=== PATIENT | female | born 1985 | race Caucasian/White ===

== ENCOUNTER 2021-02-03 06:32 | Emergency (ER) | payer OTHER, SELFPAY ==
[2021-02-03 07:11] VITALS: BP 133/71; PULSE 93; RESP 12; TEMP 37.3; O2SAT 99; BMI 20.7
--- NOTE | 2021-02-03 08:22 | ED_ITS ---
HPI - Wound/Laceration General Chief Complaint: Wound/Laceration Stated Complaint: stitches removed Time Seen by Provider: 02/03/21 08:09 Source: patient Mode of arrival: ambulatory Limitations: no limitations History of Present Illness HPI narrative: 36-year-old female who presents emergency department for suture removal. The patient had a gluteal implant and liposuction done in the [place] approximately 21 days prior. She was told to get the stitches out by a local provider. The patient states that the wounds are healing well and she has no symptoms. Related Data Allergies Allergy/AdvReac Type Severity Reaction Status Date / Time JUVEDERM Allergy Intermediate LIP Uncoded 05/24/20 16:46 SWELLING Review of Systems Review of Systems: Yes all other systems are reviewed and are negative PMFSH [facility] N[facility]: Past medical history: None. Past surgical history: Gluteal implant and liposuction approximately 21 days prior. Social history: She denies tobacco, alcohol and drug use. Medical History (Updated 02/03/21 @ 08:46 by Kenneth Grubbs MD) No known health problems Social History Social History Advance Directives: No Advance Directives Information Provided: No Patient : No Physical Exam Vital Signs: Vital Signs: Last Vital Signs Temp 99.1 F 02/03/21 07:11 Pulse 93 02/03/21 07:11 Resp 12 02/03/21 07:11 BP 133/71 02/03/21 07:11 Pulse Ox 99 02/03/21 07:11 Body Mass Index 20.7 Const: General: cooperative and healthy appearing Nutritional Appearance: well nourished Orientation/consciousness: oriented to person Limitations: no limitations Skin: Other: The patient has a mid gluteal incision with a running suture with 1 not. Am unable to locate the suture in the patient's umbilical area. Both surgical sites appear to be healing well. Neuro: General: oriented to person Course Course Course Narrative: 36-year-old female who presents emergency department for evaluation of suture removal from a gluteal implant procedure and liposuction procedure done 21 days prior in the [place]. The patient appears to have 1 running suture in the gluteal area however uncertain how to remove the suture. I am not able to visualize the suture in the patient's umbilical area. There does not appear to be any evidence of infection. I will consult our on- call surgeon to see if they can see the patient is now patient to remove these sutures. 0840: Dr. Hall, the on-call surgeon came to the emergency department evaluated the patient. He was not able to find the bottom knot of the running suture in the gluteal area but was able to remove the majority of the suture with gentle traction. He was not able to see a removable suture in the patient's umbilical area. I did discuss this with the patient. The patient will be discharged home. She was instructed to follow up with Dr. Pavon if she develops any issues or if she has she develops any signs of infection Discharge Plan Discharge Clinical Impression: Encounter for removal of sutures Patient Disposition: Home, Self-Care Additional Instructions: The suture in the gluteal area was imbedded and there was only at top knot and no bottom knot that was visualized. The on-call surgeon, was able to remove the majority of the suture but there may be some retained suture. This retained suture will work itself out over time. We were not able to see any suture that needed to be removed in the belly button area. If you develop any signs of infection such as redness, increased pain, increased swelling, drainage of pus then you should call Dr. Zuniga's office for follow- up or return to the emergency department. Referrals: Rico Mackenzie MD [Physician] - 1 week (Thanks for you help with this patient)
--- NOTE | 2021-02-03 08:52 | PM.CNGS ---
History of Present Illness Consult details Consult date: 02/03/21 Requesting physician: Kenneth Grubbs Narrative: 36-year-old female patient status post cosmetic surgery performed at the [facility] presenting to the emergency department for postoperative suture removal. Wounds were evaluated by the emergency room physician and patient found to have a suture located in the intergluteal cleft with only 1 not visible. Surgical consultation requested for assistance with suture removal. The patient feels fine and denies any ongoing pain or discharge from her wounds. She also umbilical incision which her [facility] surgeon requested a suture removal as well. Incisions in the lower abdomen from the liposuction were previously removed and Review of Systems Review of Systems: Yes all other systems are reviewed and are negative Gastrointestinal: Gastrointestinal: Denies abdominal pain Musculoskeletal: Musculoskeletal: Denies back pain and Denies myalgias Integumentary/Breasts: Skin/Breast: Denies bleeding lesions, Denies new lesions, Denies skin swelling, Denies skin ulcer and Denies sores PMFSH Past Medical History Medical History No known health problems Social History Social History Advance Directives: No Advance Directives Information Provided: No Patient : No Meds Allergies Allergy/AdvReac Type Severity Reaction Status Date / Time JUVEDERM Allergy Intermediate LIP Uncoded 05/24/20 16:46 SWELLING Physical Exam Vital Signs: Vital Signs: Last Vital Signs Temp 99.1 F 02/03/21 07:11 Pulse 93 02/03/21 07:11 Resp 12 02/03/21 07:11 BP 133/71 02/03/21 07:11 Pulse Ox 99 02/03/21 07:11 Body Mass Index 20.7 Const: General: cooperative, comfortable, no acute distress, alert and awake Resp: Effort & Inspection: normal respiratory effort GI: Other: Umbilical into bilateral lower quadrant incisions are found to be clean and intact. No suture is seen in any of the 3 incisions. No suture removal was performed in the abdomen. Back/Spine/Pelvis: Back/spine/pelvis image: 1. Incision and intergluteal cleft: Wounds are clean and intact 2. Visible suture knot in the upper incision, no lower not identified; suture was able to be advanced with a slight pull on the knot, and visible not excised. No other residual suture could be identified. Skin: Other: Warm, dry, no rash Extrem: General: Yes normal to inspection Results Labs Labs: All other labs normal. Assessment and Plan (1) Encounter for removal of sutures: Status: Acute Patient underwent surgery in the [facility] returns to the emergency department for suture removal. The surgeon left no instructions as to the type of suture material and its location. No instructions were given as to how the suture was to be removed. Examination of the umbilicus reveals no visible suture material. The suture knot which was exposed in the intergluteal cleft was removed; no other not could be identified in the opposite end. Patient should follow up in our office as needed should she developed problems with the incisions. Procedures Date of Service Date of Service: 02/03/21
--- NOTE | 2021-02-03 09:29 | PC.NURSE ---
LATE ENTRY. PT WAS SEEN BY WEIGHTS AND MEASURES INSPECTOR SURGEON FOR SUTURE REMOVAL AFTER GLUTEAL IMPLANTS PLACED 21 DAYS AGO
== END 2021-02-03 08:58 | disposition home or self-care (01) ==
PROVIDERS: Emergency Provider Emergency Medicine Emergency Medical Services; PCP Internal Medicine
DX: Z48.02 Encounter for removal of sutures (principal)
CPT/HCPCS: 99282; 99283

== ENCOUNTER 2022-12-04 12:22 | Emergency (ER) | payer OTHER, SELFPAY ==
--- NOTE | ~2022-12-04 | XR_ITS ---
EXAMINATION: XR CHEST CLINICAL INFORMATION: Cough. COMPARISON: 08/15/2019 chest radiographs. TECHNIQUE: Frontal view of the chest was obtained. FINDINGS: No significant abnormality is noted involving the heart, lungs, mediastinum, bony thorax or soft tissues. XR/XR chest 1V IMPRESSION: No acute cardiopulmonary process.
[2022-12-04 12:24] VITALS: BP 160/68; PULSE 107; RESP 20; TEMP 38.2; O2SAT 100; BMI 21.7
--- NOTE | 2022-12-04 12:25 | ED.GENADULT ---
HPI - General Adult General Chief complaint: Dyspnea Stated complaint: Cough Diff Breathing Time Seen by Provider: 12/04/22 14:28 Related Data Previous Rx's ?Medication ?Instructions ?Recorded albuterol sulfate 2.5 mg/0.5 mL 5 mg inhalation Q6H PRN shortness 12/04/22 solution for nebulization of breath or wheezing #30 ea albuterol sulfate 90 mcg/actuation 1 inh inhalation QID PRN shortness 12/04/22 aerosol inhaler of breath or wheezing #8.5 grams doxycycline hyclate 100 mg tablet 100 mg PO BID 7 days #14 tabs 12/04/22 prednisone 20 mg tablet 20 mg PO DAILY 7 days #7 tabs 12/04/22 ondansetron 4 mg disintegrating 4 mg PO Q6-8H PRN nausea and 05/30/23 tablet vomiting #7 tabs pantoprazole 40 mg tablet,delayed 40 mg PO DAILY #30 tabs 05/30/23 release (Protonix) Allergies Allergy/AdvReac Type Severity Reaction Status Date / Time JUVEDERM Allergy Intermediate LIP Uncoded 05/30/23 19:24 SWELLING PMFSH Past Medical History Medical History No known health problems Social History Social History Alcohol intake: current Alcohol intake frequency: holidays/special occasions only Smoked in Last 30 Days: No Use of substances other than those prescribed or required for medical reasons: No Advance Directives: No Advance Directives Information Provided: No Patient : No Physical Exam ED Vital Signs: BMI result Body Mass Index 21.7 Course Course Course Narrative: This is an RME: Additional HPI, ROS, PE not included below will be deferred to primary provider. 37-year-old female history of arthritis and asthma presenting with a dry cough x3 weeks and shortness of breath x2 days worsening. Patient tells me cough is dry in nature, and very uncomfortable. Reports she has been having shortness of breath at rest and with exertion as well as substernal chest pain only with cough. If she is not coughing she does not experience chest pain. Denies any sick contacts. Denies fevers, chills, nausea, vomiting, abdominal pain, headache, vision changes, dizziness weakness. No known sick contacts. Multiple negative COVID test at home. Has been using her nebulizer with little to no relief, does not have an inhaler. Physical exam patient with dry cough intermittently, diminished breath sounds bilaterally, rapid regular rhythm likely sinus tachycardia. Saturating 99% on room air 113 beats per minute and patient febrile. Tachycardia and fever likely secondary to viral illness. No need for blood cultures or lactic as I do not suspect sepsis. Plan viral testing, x-ray. Will order albuterol treatment. Medications Administered Discontinued Medications Generic Name Dose Route Start Last Admin Trade Name Freq PRN Reason Stop Dose Admin Acetaminophen 650 mg 12/04/22 12:25 12/04/22 12:33 Acetaminophen 325 Mg Tablet PO 12/04/22 12:26 650 mg ONCE ONE Administration Albuterol Sulfate 5 mg 12/04/22 12:25 12/04/22 13:13 Albuterol Sulfate (0.083%) 2.5 Mg/3 Ml Vial.Neb INHALE 12/04/22 12:26 5 mg ONCE ONE Administration Dexamethasone Sodium Phosphate 8 mg 12/04/22 12:30 12/04/22 14:58 Dexamethasone Sod Phosphate 4 Mg/Ml Vial IVPUSH 12/04/22 12:31 8 mg ONCE ONE Administration Medical Decision Making Lab Data Labs: Lab Results 12/04/22 Range/Units 13:13 Influenza Type A (PCR) NEGATIVE (Negative) Influenza Type B (PCR) NEGATIVE (Negative) RSV RNA Qual (PCR) NEGATIVE (Negative) SARS-CoV-2 RNA (RT-PCR) NEGATIVE (Negative) Discharge Plan Discharge Clinical Impression: Asthma with exacerbation Patient Disposition: Home, Self-Care Instructions: Asthma (DC) Additional Instructions: Follow up with your primary care provider. Return to the emergency department immediately if your symptoms worsen or if you develop any dizziness, shortness of breath, difficulty breathing, chest pain, blurry vision, loss of vision, nausea, vomiting, abdominal pain, fever, chills, back pain, or any other complaints. Prescriptions: New prednisone 20 mg tablet 20 mg PO DAILY 7 Days Qty: 7 0RF doxycycline hyclate 100 mg tablet 100 mg PO BID 7 Days Qty: 14 0RF albuterol sulfate 90 mcg/actuation HFA aerosol inhaler 1 inh inhalation QID PRN (Reason: shortness of breath or wheezing) Qty: 8.5 0RF albuterol sulfate 2.5 mg/0.5 mL solution for nebulization 5 mg inhalation Q6H PRN (Reason: shortness of breath or wheezing) Qty: 30 0RF No Action pantoprazole [Protonix] 40 mg tablet,delayed release (DR/EC) 40 mg PO DAILY Qty: 30 0RF ondansetron 4 mg tablet,disintegrating 4 mg PO Q6-8H PRN (Reason: nausea and vomiting) Qty: 7 0RF Referrals: [facility] [place] Family Medicine [Provider Group] (Call to establish and follow up with a primary care provider. If you already have a primary care provider, please follow up with them.) [facility] [place] [facility] [Provider Group] (Call to establish and follow up with a primary care provider. If you already have a primary care provider, please follow up with them.) [facility] [facility] [Provider Group] (Call to establish and follow up with a primary care provider. If you already have a primary care provider, please follow up with them.) Interventions: ED Discharge Assessment Last Done: 12/04/22 15:00 Discharge Date/Time: 12/04/22 15:00 Print Language: Kinyarwanda
[2022-12-04] MEDS: Acetaminophen 325 MG TABLET 650 MG PO (12:33)
[2022-12-04] MEDS: Albuterol Sulfate (0.083%) 2.5 MG/3 ML VIAL.NEB 5 MG INHALE (13:13)
[2022-12-04 13:14] VITALS: PULSE 107; RESP 18; O2SAT 97
[2022-12-04 13:55] LABS: Influenza A PCR NEGATIVE (Negative); Influenza B PCR NEGATIVE (Negative); Resp Syncy Virus RNA Qual PCR NEGATIVE (Negative); SARS COV2 PCR INHOUSE NEGATIVE (Negative)
[2022-12-04 14:21] VITALS: BP 111/63; PULSE 90; RESP 18; TEMP 36.8; O2SAT 100
--- NOTE | 2022-12-04 14:26 | PC.NURSE ---
Pt a&ox4, lying semi-fowlers in bed, airway open and patent, no obvious signs of distress. Pt reports that her pain has improved to a 3 since she got the breathing tx. Pt reports that pain is in lower abdomen since she has been coughing so much and reports that she has two lumps in her lower abdomen now that is painful upon palpation.
--- NOTE | 2022-12-04 14:29 | ED.GENADULT ---
HPI - General Adult General Chief complaint: Dyspnea Stated complaint: Cough Diff Breathing Time Seen by Provider: 12/04/22 14:28 Source: patient Mode of arrival: ambulatory Limitations: no limitations History of Present Illness HPI narrative: Patient is a 37 year old assigned female at with a history of asthma presenting to the emergency department today with a cough. Patient states that she has had a cough for the last 3 weeks that doesn't seem to be getting better and does not have any asthma medications at home. Patient denies any dizziness, lightheadedness, abdominal pain, nausea, vomiting, fever, chills, blurry vision, double vision, loss of vision, chest pain, difficulty breathing, shortness of breath, back pain, night sweats, pain with urination, increased urinary frequency, increased urinary urgency, blood in her urine or stool, syncope or a near syncopal episode, recent trauma or falls, bowel incontinence, bladder incontinence, bowel retention, bladder retention, or any other complaints at this time. Onset (ago): week(s) (3) Severity: mild Severity scale (1-10): 3 Relieving factors: none Exacerbating factors: none Associated symptoms: cough Treatments prior to arrival: none Related Data Previous Rx's Medication Instructions Recorded albuterol sulfate 2.5 mg/0.5 mL 5 mg inhalation Q6H PRN shortness 12/04/22 solution for nebulization of breath or wheezing #30 ea albuterol sulfate 90 mcg/actuation 1 inh inhalation QID PRN shortness 12/04/22 aerosol inhaler of breath or wheezing #8.5 grams doxycycline hyclate 100 mg tablet 100 mg PO BID 7 days #14 tabs 12/04/22 prednisone 20 mg tablet 20 mg PO DAILY 7 days #7 tabs 12/04/22 Allergies Allergy/AdvReac Type Severity Reaction Status Date / Time JUVEDERM Allergy Intermediate LIP Uncoded 05/24/20 16:46 SWELLING Review of Systems Constitutional: Constitutional: Reports no additional constitutional complaints, Denies chills, Denies fever(s) and Denies night sweats Eyes: Eyes: Reports no additional eye complaints, Denies blurry vision, Denies change in vision, Denies diplopia, Denies eye discharge, Denies loss of vision and Denies eye pain ENT: Denies dizziness Cardiovascular: Cardiovascular: Reports no additional cardiovascular complaints, Denies chest pain, Denies lightheadedness, Denies Loss of Consciousness and Denies dyspnea Respiratory: Respiratory: Reports no additional respiratory complaints, Reports cough and Denies dyspnea Gastrointestinal: Gastrointestinal: Reports no additional gastrointestinal complaints, Denies abdominal pain, Denies melena, Denies hematochezia, Denies change in bowel habits and Denies change in stool character Genitourinary: Genitourinary: Denies hematuria, Denies urinary frequency, Denies dysuria, Denies urinary incontinence, Denies urinary hesitancy and Denies urinary urgency Musculoskeletal: Musculoskeletal: Reports no additional musculoskeletal complaints, Denies numbness and Denies tingling Neurologic: Denies dizziness, Denies loss of vision, Denies numbness and Denies tingling Psychiatric: Psychiatric: Reports no additional psychiatric complaints Endocrine: Endocrine: Reports no additional endocrine complaints Hematologic/Lymphatic: Hematologic/Lymphatic: Reports no additional hematologic/lymphatic complaints Allergic/Immunologic: Allergic/Immunologic: Reports no additional allergic/immunologic complaints PMFSH Past Medical History Attestation statement: The following information was validated with the patient. Source: old records reviewed and nursing notes reviewed Medical History No known health problems Social History Social History Alcohol intake: current Alcohol intake frequency: holidays/special occasions only Smoked in Last 30 Days: No Use of substances other than those prescribed or required for medical reasons: No Advance Directives: No Patient : No Physical Exam ED Vital Signs: Vital Signs - 24 hr 12/04/22 12:24 12/04/22 13:14 12/04/22 14:21 Temperature 100.8 F H 98.3 F Pulse Rate 107 H 107 H 90 Respiratory Rate 20 18 18 Blood Pressure 160/68 H 111/63 Pulse Oximetry 100 100 Oxygen Delivery Method Room Air Room Air BMI result Body Mass Index 21.7 Const General: cooperative, no acute distress, alert and awake Nutritional Appearance: well nourished Orientation/consciousness: patient oriented x3 Limitations: no limitations HENMT Head: Yes normal to inspection and Yes atraumatic Ears: hearing grossly normal bilaterally and external ears normal General nose exam: Normal external nose present, no nasal discharge noted and no epistaxis Face and sinus: Yes normal facial exam, No abrasion and No laceration Mouth: Normal oral and palatal mucosa present, no drooling and no muffled voice Eyes General: appearance normal, both eyes and all related structures Periorbital: periorbital findings normal Eyelids: Yes eyelids normal Conjunctivae: conjunctivae normal Pupils: Equal, round and reactive pupils present EOM: EOMs intact bilaterally Neck Neck: Yes normal visual inspection, Yes full ROM and Yes no lymphadenopathy Chest Chest palpation & inspection: normal inspection of the chest Resp Effort & Inspection: normal respiratory effort and able to speak in complete sentences Auscultation: wheezes throughout Cardio Rate: regular rate Rhythm: regular rhythm GI Inspection: Yes normal to inspection Palpation (GI): Soft to palpation, not firm, nontender and no guarding Neuro General: patient oriented x3 and moves all extremities Cranial nerves: Yes Equal, round and reactive pupils present Cognition (Neuro): normal cognition Motor exam (neuro): 5/5 motor strength present throughout Sensory Exam: Normal double simultaneous stimulation for sensation Coordination: [id number] test normal Extrem General: Yes normal to inspection, Yes full ROM and Yes capillary refill normal Psych Appearance: grossly normal Mental Status: mental status grossly normal Affect: normal affect Attitude: cooperative Thought process: Normal thought process present Thought content: Normal thought content present Insight: Good insight present (Psych) Medications Administered Discontinued Medications Generic Name Dose Route Start Last Admin Trade Name [place] PRN Reason Stop Dose Admin Acetaminophen 650 mg 12/04/22 12:25 12/04/22 12:33 Acetaminophen 325 Mg Tablet PO 12/04/22 12:26 650 mg ONCE ONE Administration Albuterol Sulfate 5 mg 12/04/22 12:25 12/04/22 13:13 Albuterol Sulfate (0.083%) 2.5 Mg/3 Ml Vial.Neb INHALE 12/04/22 12:26 5 mg ONCE ONE Administration Dexamethasone Sodium Phosphate 8 mg 12/04/22 12:30 12/04/22 14:58 Dexamethasone Sod Phosphate 4 Mg/Ml Vial IVPUSH 12/04/22 12:31 8 mg ONCE ONE Administration Medical Decision Making Medical Decision Making [facility] Narrative: Patient is a 37 year old assigned female at with a history of asthma presenting to the emergency department today with a cough. Patient's physical exam showed diffuse wheezing. Patient's Influenza/COVID/RSV swab was negative. Patient's chest x-ray showed no acute process. I explained my physical exam findings as well as all test results to the patient. I answered all questions asked by the patient. I stressed the importance of the patient taking her medication as prescribed. I stressed the importance of the patient following up with her primary care provider. I stressed the importance of the patient returning to the emergency department immediately if her symptoms were to worsen or if she were to develop any dizziness, shortness of breath, difficulty breathing, chest pain, blurry vision, loss of vision, nausea, vomiting, abdominal pain, fever, chills, back pain, or any other complaints. Patient verbalized agreement and understanding with this treatment plan and discharge. Differential Diagnosis Differential Diagnoses: The differential diagnosis associated with the presentation includes asthma exacerbation Lab Data MDM Lab Attestation statement: I reviewed the patient's lab results. Labs: Lab Results 12/04/22 Range/Units 13:13 Influenza Type A (PCR) NEGATIVE (Negative) Influenza Type B (PCR) NEGATIVE (Negative) RSV RNA Qual (PCR) NEGATIVE (Negative) SARS-CoV-2 RNA (RT-PCR) NEGATIVE (Negative) Independent Interpretation I performed an independent interpretation of an: Plain X-Ray Interpretation: My interpretation is in agreement with the radiologist's impression of this imaging study. EXAMINATION: XR CHEST CLINICAL INFORMATION: Cough. COMPARISON: 08/15/2019 chest radiographs. TECHNIQUE: Frontal view of the chest was obtained. FINDINGS: No significant abnormality is noted involving the heart, lungs, mediastinum, bony thorax or soft tissues. XR/XR chest 1V IMPRESSION: No acute cardiopulmonary process. Dictated By: Sami Mcmullen MD Signed By: Electronically signed by Sami Mcmullen MD 12/04/22 1400 Discharge Plan Discharge Clinical Impression: Asthma with exacerbation Patient Disposition: Home, Self-Care Instructions: Asthma (DC) Additional Instructions: Follow up with your primary care provider. Return to the emergency department immediately if your symptoms worsen or if you develop any dizziness, shortness of breath, difficulty breathing, chest pain, blurry vision, loss of vision, nausea, vomiting, abdominal pain, fever, chills, back pain, or any other complaints. Prescriptions: New prednisone 20 mg tablet 20 mg PO DAILY 7 Days Qty: 7 0RF doxycycline hyclate 100 mg tablet 100 mg PO BID 7 Days Qty: 14 0RF albuterol sulfate 90 mcg/actuation HFA aerosol inhaler 1 inh inhalation QID PRN (Reason: shortness of breath or wheezing) Qty: 8.5 0RF albuterol sulfate 2.5 mg/0.5 mL solution for nebulization 5 mg inhalation Q6H PRN (Reason: shortness of breath or wheezing) Qty: 30 0RF Referrals: [facility] [place] [facility] [Provider Group] (Call to establish and follow up with a primary care provider. If you already have a primary care provider, please follow up with them.) [facility] [Provider Group] (Call to establish and follow up with a primary care provider. If you already have a primary care provider, please follow up with them.) [facility] [Provider Group] (Call to establish and follow up with a primary care provider. If you already have a primary care provider, please follow up with them.) Interventions: ED Discharge Assessment Last Done: 12/04/22 15:00 Discharge Date/Time: 12/04/22 15:00 Print Language: Divehi
[2022-12-04] MEDS: dexAMETHasone sod phosphate 4 MG/ML VIAL 8 MG IVPUSH (14:58)
== END 2022-12-04 15:00 | disposition home or self-care (01) ==
PROVIDERS: Physician Assistant; Emergency Provider Emergency Medicine
DX: J45.901 Unspecified asthma with (acute) exacerbation (principal); R06.02 Shortness of breath; R05.9 Cough, unspecified; Z20.822 Contact with and (suspected) exposure to COVID-19; Z20.828 Contact with and (suspected) exposure to other viral communicable diseases; Z79.899 Other long term (current) drug therapy
CPT/HCPCS: 0241U; 71045; 94640; 99284; 99285; J1100

== ENCOUNTER 2023-05-30 19:12 | Emergency (ER) | payer OTHER, SELFPAY ==
--- NOTE | ~2023-05-30 | US_ITS ---
EXAMINATION: US ABDOMEN LIMITED CLINICAL INFORMATION: Right upper quadrant pain. COMPARISON: None available. TECHNIQUE: Real-time imaging of the right upper quadrant abdominal viscera. FINDINGS: PANCREAS: Normal. LIVER: Normal. The liver is normal in size. The liver contour is normal. Parenchymal echogenicity is normal. No focal hepatic lesion. There is no intrahepatic biliary duct dilatation seen. GALLBLADDER: There is mild pericholecystic fluid. The gallbladder is physiologically distended without evidence of stones, sludge, polyps or wall thickening. COMMON BILE DUCT: Normal in caliber measuring 0.2 cm in diameter. RIGHT KIDNEY: Normal. No hydronephrosis. No renal calculi or focal parenchymal lesions. The kidney measures 10.9 cm in maximum dimension. FREE FLUID: None. US/US abdomen limited IMPRESSION: There is mild pericholecystic fluid. There is, however, no cholelithiasis, and no gallbladder wall thickening is seen to suggest acute cholecystitis. The examination is otherwise unremarkable.
[2023-05-30 19:24] VITALS: BP 134/89; PULSE 59; RESP 18; TEMP 36.6; O2SAT 99; BMI 21.7
--- NOTE | 2023-05-30 20:23 | ED.ABDPAIN ---
HPI - Abdominal Pain General Chief Complaint: Abdominal Pain Stated Complaint: Stomach/abdominal pain, chest pain Time Seen by Provider: 05/30/23 22:05 Source: patient Mode of arrival: ambulatory Limitations: no limitations History of Present Illness HPI narrative: Patient history of arthritis did not take any Tylenol comes with upper abdominal pain with nausea and bloating since yesterday no vomiting no history of same in the past no fever no chills no urinary complaint Related Data Previous Rx's Medication Instructions Recorded albuterol sulfate 2.5 mg/0.5 mL 5 mg inhalation Q6H PRN shortness 12/04/22 solution for nebulization of breath or wheezing #30 ea albuterol sulfate 90 mcg/actuation 1 inh inhalation QID PRN shortness 12/04/22 aerosol inhaler of breath or wheezing #8.5 grams doxycycline hyclate 100 mg tablet 100 mg PO BID 7 days #14 tabs 12/04/22 prednisone 20 mg tablet 20 mg PO DAILY 7 days #7 tabs 12/04/22 ondansetron 4 mg disintegrating 4 mg PO Q6-8H PRN nausea and 05/30/23 tablet vomiting #7 tabs pantoprazole 40 mg tablet,delayed 40 mg PO DAILY #30 tabs 05/30/23 release (Protonix) Allergies Allergy/AdvReac Type Severity Reaction Status Date / Time JUVEDERM Allergy Intermediate LIP Uncoded 05/30/23 19:24 SWELLING Review of Systems Review of Systems Yes all other systems are reviewed and are negative [facility] Past Medical History Medical History No known health problems Social History Social History Alcohol intake: current Alcohol intake frequency: holidays/special occasions only Smoked in Last 30 Days: No Use of substances other than those prescribed or required for medical reasons: No Advance Directives: No Advance Directives Information Provided: No Patient : No Physical Exam ED Vital Signs: Vital Signs - 24 hr 05/30/23 19:24 05/30/23 20:56 Temperature 97.8 F Pulse Rate 59 62 Respiratory Rate 18 18 Blood Pressure 134/89 126/67 Pulse Oximetry 99 100 Oxygen Delivery Method Room Air Room Air BMI result Body Mass Index 21.7 Appearance: Alert. Oriented X3. No acute distress. Eyes: PERRLA, No Nystagmus ENT: Pharynx normal. Oral Mucosa moist Neck: Normal inspection. Neck supple. CVS: Normal heart rate and rhythm. Pulses normal. Respiratory: No respiratory distress. Equal air entry bilateral, no wheezing/rales/rhonchi Abdomen: Soft mild epigastric area no rebound tenderness or guarding Roche sign neg. Bowel sounds are present, no mass palpable, no CVA tenderness Skin: Skin warm and dry. Normal skin color. Normal skin turgor. Extremities: No lower extremity edema. No calf tenderness Neuro: Oriented X 3. No motor deficit. Course Course Course Narrative: This is an RME: Additional HPI, ROS, PE not included below will be deferred to primary provider. This is a [id number] presenting to the ER with complaints of epigastric pain, burning and belching x 1 days. Has taken gas-x without any relief. TTP in the epigastrium. Plan: labs, US Medical Decision Making Medical Decision Making [facility] Narrative: Patient's ultrasound negative for gallstones has elevated LFT with normal bilirubin and 20 note the patient does drink occasionally but not heavy drinker does not take any Tylenol low risk for hepatitis. Will discharge patient home advised to follow with gastroenterology Differential Diagnosis Differential Diagnoses: The differential diagnosis associated with the presentation includes Gastritis/cholecystitis/cholelithiasis/pancreatitis Lab Data [facility] Lab Attestation statement: I reviewed the patient's lab results. 05/30/23 20:36 05/30/23 20:36 Labs: Lab Results 05/30/23 Range/Units 20:36 WBC 12.4 H (4.8-10.8) X10*3/uL RBC 4.09 L (4.20-5.50) X10*6/uL Hgb 11.9 L (12.0-16.0) g/dl Hct 35.8 L (37.0-47.0) % MCV 87.5 (80.0-98.0) fL MCH 29.1 (27.0-33.0) pg MCHC 33.2 (31.0-35.0) g/dl RDW 13.3 (11.0-16.0) % Plt Count 216 (160-400) X10*3/uL MPV 12.1 (9.4-12.3) fL Immature Gran % (Auto) 0.2 (0.0-0.4) % Neut % (Auto) 72.1 (45-73) % Lymph % (Auto) 18.5 L (20-40) % Cuming % (Auto) 8.4 (2-11) % Eos % (Auto) 0.5 (0-4) % Baso % (Auto) 0.3 (0-2) % Lymph # (Auto) 2.3 (1.2-4.9) X10*3/uL Cuming # (Auto) 1.0 (0.1-1.2) X10*3/uL Eos # (Auto) 0.1 (0.0-0.4) X10*3/uL Baso # (Auto) 0.0 (0.0-0.2) X10*3/uL Abs Immat Gran (auto) 0.02 (0.00-0.03) X10*3/uL Absolute Neuts (auto) 9.0 H (2.0-8.3) x10*3/uL Absolute Nucleated RBC 0.000 (0.0-0.012) X10*3/uL Nucleated RBC % (auto) 0.0 (0.0-0.2) /100WBC Sodium 138 (135-145) mmol/L Potassium 3.8 (3.3-5.1) mmol/L Chloride 105 (96-108) mmol/L Carbon Dioxide 20 L (22-29) mmol/L Anion Gap 17 (12-20) BUN 8 L (9-16) mg/dL Creatinine 0.67 (0.5-1.4) mg/dL Estim Creat Clear Calc 84.2 Estimated GFR > 60 Random Glucose 112 (60-115) mg/dL Calcium 10.3 H (8.4-10.2) mg/dL Total Bilirubin 0.8 (0.0-1.0) mg/dL Direct Bilirubin 0.4 (0.0-0.5) mg/dL AST 348 H (5-31) U/L ALT 204 H (0-31) U/L Alkaline Phosphatase 65 (39-117) U/L Troponin I High Sens < 2.7 (<3.5-17.0) ng/L Total Protein 7.8 (6.5-8.0) g/dL Albumin 4.4 (3.5-5.0) g/dL Lipase 24 (8-78) U/L Radiology Impression Discussion of test interpretation with radiology: I have reviewed the radiologist's reading. Medications Administered Discontinued Medications Generic Name Dose Route Start Last Admin Trade Name Freq PRN Reason Stop Dose Admin Omeprazole 40 mg 05/30/23 22:31 05/30/23 22:35 Omeprazole 40 Mg Capsule.Dr PO 05/30/23 22:32 40 mg ONCE ONE Administration Ondansetron HCl 4 mg 05/30/23 22:23 05/30/23 22:35 Ondansetron Odt 4 Mg Tab.Rapdis TRANSLINGU 05/30/23 22:24 4 mg ONCE ONE Administration Tramadol HCl 50 mg 05/30/23 22:23 05/30/23 22:35 Tramadol Hcl 50 Mg Tablet PO 05/30/23 22:24 50 mg ONCE ONE Administration Discharge Plan Discharge Clinical Impression: Gastritis, Elevated LFTs Patient Disposition: Home, Self-Care Instructions: Gastritis (ED) Additional Instructions: You have elevated liver enzymes cause not known Do not take Tylenol/alcohol Follow-up with upper marker for further evaluation Recheck her liver enzymes next week Take Protonix daily for gastritis and Zofran for nausea as needed Prescriptions: New pantoprazole [Protonix] 40 mg tablet,delayed release (DR/EC) 40 mg PO DAILY Qty: 30 0RF ondansetron 4 mg tablet,disintegrating 4 mg PO Q6-8H PRN (Reason: nausea and vomiting) Qty: 7 0RF No Action prednisone 20 mg tablet 20 mg PO DAILY 7 Days Qty: 7 0RF doxycycline hyclate 100 mg tablet 100 mg PO BID 7 Days Qty: 14 0RF albuterol sulfate 90 mcg/actuation HFA aerosol inhaler 1 inh inhalation QID PRN (Reason: shortness of breath or wheezing) Qty: 8.5 0RF albuterol sulfate 2.5 mg/0.5 mL solution for nebulization 5 mg inhalation Q6H PRN (Reason: shortness of breath or wheezing) Qty: 30 0RF Referrals: Anna Martinez MD [Physician] - 1 week Interventions: ED Discharge Assessment Last Done: 05/30/23 22:47 Discharge Date/Time: 05/30/23 22:47
[2023-05-30 20:43] LABS: Basophils Percent Auto 0.3 % (0-2); Eosinophils Absolute Auto 0.1 X10*3/uL (0.0-0.4); Eosinophils Percent Auto 0.5 % (0-4); Hematocrit 35.8 % (37.0-47.0); Hemoglobin 11.9 g/dl (12.0-16.0); Imm Gran Abs Auto 0.02 X10*3/uL (0.00-0.03); Imm Gran Pct Auto 0.2 % (0.0-0.4); Lymphocytes Absolute Auto 2.3 X10*3/uL (1.2-4.9); Lymphocytes Percent Auto 18.5 % (20-40); MANUAL DIFF FLAG NO; Mean Corpuscular HGB Conc 33.2 g/dl (31.0-35.0); Mean Corpuscular Hemoglobin 29.1 pg (27.0-33.0); Mean Corpuscular Volume 87.5 fL (80.0-98.0); Mean Platelet Volume 12.1 fL (9.4-12.3); Monocytes Percent Auto 8.4 % (2-11); Neutrophils Percent Auto 72.1 % (45-73); Platelet Count 216 X10*3/uL (160-400); Red Blood Count 4.09 X10*6/uL (4.20-5.50); Red Cell Distribution Width 13.3 % (11.0-16.0); White Blood Count 12.4 X10*3/uL (4.8-10.8)
[2023-05-30 20:56] VITALS: BP 126/67; PULSE 62; RESP 18; O2SAT 100
[2023-05-30 21:02] LABS: Alanine Aminotransferase 204 U/L (0-31); Albumin Level 4.4 g/dL (3.5-5.0); Alkaline Phosphatase 65 U/L (39-117); Anion Gap 17 (12-20); Aspartate Amino Transferase 348 U/L (5-31); Bilirubin Direct 0.4 mg/dL (0.0-0.5); Bilirubin Total 0.8 mg/dL (0.0-1.0); Blood Urea Nitrogen 8 mg/dL (9-16); Calcium 10.3 mg/dL (8.4-10.2); Carbon Dioxide 20 mmol/L (22-29); Chloride 105 mmol/L (96-108); Creatinine Clr Calc Pharmacy 84.2; Estimated Glomerular Filt Rate > 60; Glucose Random 112 mg/dL (60-115); Lipase 24 U/L (8-78); Potassium 3.8 mmol/L (3.3-5.1); Sodium 138 mmol/L (135-145); Total Protein 7.8 g/dL (6.5-8.0)
[2023-05-30 21:07] LABS: Troponin-I High Sensitivity < 2.7 ng/L (<3.5-17.0)
[2023-05-30] MEDS: Omeprazole 40 MG CAPSULE.DR PO (22:35)
[2023-05-30] MEDS: Ondansetron ODT 4 MG TAB.RAPDIS TRANSLINGU (22:35)
[2023-05-30] MEDS: traMADoL HCL 50 MG TABLET PO (22:35)
== END 2023-05-30 22:47 | disposition home or self-care (01) ==
PROVIDERS: Physician Assistant Medical; Emergency Provider Internal Medicine; PCP Internal Medicine
DX: K29.70 Gastritis, unspecified, without bleeding (principal); R79.89 Other specified abnormal findings of blood chemistry; R10.13 Epigastric pain; Z79.899 Other long term (current) drug therapy
CPT/HCPCS: 36415; 76705; 80048; 80076; 83690; 84484; 85025; 99284

== ENCOUNTER 2025-04-14 06:01 | Emergency (ER) | payer OTHER, SELFPAY ==
--- OUTSIDE RECORDS SUMMARY | 2025-04-11 10:15 | XMS_ITS | Encounter Summary ---
Author Organization [facility] Address [id number] [place] [id number] Care Team Providers Care Cleaning Professional Name Role Phone Shira Du MD Primary Care Provider Reason for Visit * Reason Comments Follow-up Encounter Details Date Type Department Care Team (Late st Contact Info) Description 04/11/2025 10:15 AM EDT Office Visit Adult Medicine [facility] [address] [place] [phone] Angela Andres, [employer] [address] [place] [phone] Moderate persistent asthmatic bronchitis with acute exacerbation (Primary Dx); Prediabetes; Hyperlipidemia, unspecified hyperlipidemia type Social History Tobacco Use Types Packs/Day Years Used Date Smoking Tobacco: Former Cigarettes Q uit: 02/11/2020 Smokeless Tobacco: Never Tobacco Cessation:Counseling Given: Not Answered Alcohol Use Standard Drinks/Week Comments No 0 (1 standard drink = 0.6 oz pur e alcohol) Housing Instability Answer Date Recorde d Are you worried that in the next 2 months you may not have stable housing? No 12/31/2024 Food Access & Nutrition Answer Date Rec orded Do you have access to a vari ety of food including fruits and vegetables? Yes 12/31/2024 Access to Healthcare Answer Date Record ed Within the last 3 months, ho w many times did you visit the emergency department for your medical care? 0 12/31/2024 Health Literacy Answer Date Recorded How often do you need to hav e someone help you when you read instructions, pamphlets, or other written material from your doctor or pharmacy? Never 12/31/2024 Caregiver: How often do you need to have someone help you when you read instructions, pamphlets, or other written material from your doctor or pharmacy? Not on file 12/31/2024 Financial Risk Answer Date Recorded How hard is it for you to pa y for the very basics like food, housing, medical care, and air conditioning / heating? Not very hard 12/31/2024 Transportation Answer Date Recorded Has the lack of transportati on kept you from meetings, work, or from getting things needed for daily living? No Has the lack of transportati on kept you from medical appointments or from getting medications? No 12/31/2024 Social Isolation Answer Date Recorded How often do you feel lonely or isolated from th ose around you? Never 12/31/2024 Food Risk Answer Date Recorded Within the past 12 months we worried whether our food would run out before we got money to buy more. Never true 12/31/2024 Within the past 12 months th e food we bought just didn't last and we didn't have money to get more. Never true 12/31/2024 Living Situation Answer Date Recorded What is your living situation? 0 12/31/2024 Comments Unknown Sex and Gender Information Value Date Recorded Sex Assigned at Not on file Legal Sex Female 2:15 AM EST Gender Identity Not on file Sexual Orientation Not on file documented as of this encounter Last Filed Vital Signs Vital Sign Reading Time Taken Comments Blood Pressure 112/72 04/11/2025 9:59 AM EDT Pulse 62 04/11/2025 9:59 AM EDT Temperature 36.4 C (97.5 F) 04/11/2025 9:59 AM EDT Respiratory Rate 14 04/11/2025 9:59 AM EDT Oxygen Saturation 99% 04/11/2025 9:59 AM EDT Inhaled Oxygen Concentration - - Weight 70.3 kg (155 lb) 04/11/2025 9:59 AM EDT Height 154.9 cm (5' 1 ) 04/11/2025 9:59 AM EDT Body Mass Index 29.29 04/11/2025 9:59 AM EDT documented in this encounter Ordered Prescriptions Prescription Sig Dispense Quantity Refills Last Filled Start Date End Date metFORMIN XR (GLUCOPHAGE-XR) 500 mg 24 hr tablet Take 1 tablet (500 mg total) by mouth 1 (one) time each day with breakfast. Do not crush, chew, or split. 90 tablet 1 04/11/2025 mometasone (Asmanex Twisthaler) 220 mcg/ actuation (60) aerosol powdr breath activated inhaler Inhale 1 puff by mouth 1 (one) time each day in the evening. 1 each 12 04/11/2025 6 albuterol HFA (Proventil HFA) 90 mcg/actuation inhaler Inhale 2 puffs by mouth every 4 (four) hours if needed for wheezing or shortness of breath. 6.7 g 04/11/2025 6 documented in this encounter Progress Notes * Angela Andres, [place] - 04/11/2025 10:15 AM EDT PATIENT'S PCP: Shira Du MD LAST VISIT IN THIS DEPARTMENT: 01/03/2025 I have obtained verbal consent from Lary Moore prior to the recording. I have advised Lary Moore that she may refuse the recording and require the recording to be turned off at any time during this encounter. Lary Moore is a 40 y.o. (: 1985) female who presents today for: Chief Complaint Patient presents with Follow-up SUBJECTIVE History of Present Illness The patient is a 40-year-old female who presents for lab work results, asthma, prediabetes, and elevated cholesterol. She reports a worsening of her asthma symptoms, including an itchy and scratchy throat. She has been using albuterol as needed but finds it ineffective. Her use of the inhaler has increased to weekly, which she does not find beneficial. This issue has persisted for several years. She is not experiencing any chest pain. She expresses concern about her blood sugar levels and is interested in exploring medication options for prediabetes. Her diet includes a significant amount of pasta and rice. She is here to review her recent lab results, which indicate elevated cholesterol levels and a prediabetic A1c of 6.0. Diet: The patient consumes a significant amount of pasta and rice. Review Of System Review of Systems Constitutional: Negative. Respiratory: Positive for shortness of breath. Cardiovascular: Negative. Gastrointestinal: Negative. Endocrine: Negative. Genitourinary: Negative. Musculoskeletal: Negative. Skin: Negative. Neurological: Negative. Hematological: Negative. The following portions of the patient's chart were reviewed in this encounter and updated as appropriate: OBJECTIVE Vitals: 04/11/25 0959 BP: 112/72 Pulse: 62 Resp: 14 Temp: 36.4 ??C (97.5 ??F) TempSrc: Temporal SpO2: 99% Weight: 70.3 kg (155 lb) Height: 1.549 m (61 ) Body mass index is 29.29 kg/m??. BMI is greater than 25.0 (above the normal range) - see Plan No Known Allergies Active Medication: Current Outpatient Medications Medication Instructions acetaminophen (TYLENOL 8 HOUR) 650 mg 8 hr tablet Take 1 Tablet by mouth every 8 hours as needed for Pain. - Oral albuterol HFA (Proventil HFA) 90 mcg/actuation inhaler 2 puffs, inhalation, Every 4 hours PRN cholecalciferol (VITAMIN D-3) 2,000 Units, oral, Daily diclofenac (VOLTAREN) 75 mg EC tablet TAKE 1 TABLET BY MOUTH TWICE A DAY NEEDED FOR PAIN DO NOT CRUSH, CHEW, OR SPLIT metFORMIN XR (GLUCOPHAGE-XR) 500 mg, oral, Daily with breakfast, Do not crush, chew, or split. methocarbamoL (ROBAXIN) 750 mg tablet TAKE 1 TABLET BY MOUTH 3 TIMES DAILY NEEDED (PAIN OR SPASM). mometasone (Asmanex Twisthaler) 220 mcg/ actuation (60) aerosol powdr breath activated inhaler 1 puff, inhalation, Every evening mv-min/iron/folic/calcium/vitK (WOMEN'S MULTIVITAMIN ORAL) Multiple Vitamins- Minerals (One Daily Multivitamin Women) Tab: Take 1 Tablet by mouth daily. - Oral Physical Exam Vitals reviewed. Constitutional: Appearance: Normal appearance. Cardiovascular: Rate and Rhythm: Normal rate and regular rhythm. Pulses: Normal pulses. Heart sounds: Normal heart sounds. Pulmonary: Effort: Pulmonary effort is normal. Breath sounds: Normal breath sounds. Abdominal: General: Bowel sounds are normal. Palpations: Abdomen is soft. Musculoskeletal: General: Normal range of motion. Cervical back: Normal range of motion and neck supple. Skin: General: Skin is warm and dry. Neurological: General: No focal deficit present. Mental Status: She is alert. Mental status is at baseline. Imaging No Pertinent Imaging Laboratory: CBC: Lab Results Component Value Date WBC 9.2 12/01/2024 HGB 12.7 12/01/2024 HCT 40.4 12/01/2024 MCV 91.6 12/01/2024 PLT 226 12/01/2024 CMP: Lab Results Component Value Date NA 137 12/01/2024 K 4.3 12/01/2024 CL 103 12/01/2024 CO2 28 12/01/2024 GLUCOSE 92 12/01/2024 BUN 14 12/01/2024 CREATININE 0.61 12/01/2024 CALCIUM 10.0 12/01/2024 PROT 8.0 12/01/2024 ALBUMIN 4.2 12/01/2024 BILITOT 0.3 12/01/2024 AST 12 12/01/2024 ALT 38 12/01/2024 ALKPHOS 68 12/01/2024 EGFR 115 12/01/2024 A1c/Microalbuminuria/LDL/GFR: Lab Results Component Value Date HGBA1C 6.0 03/30/2025 HGBA1C 6.0 12/01/2024 HGBA1C 5.7 05/25/2024 Lab Results Component Value Date LDLCALC 128 (H) 03/30/2025 CREATININE 0.61 12/01/2024 Lipids: Lab Results Component Value Date CHOL 202 (H) 03/30/2025 TRIG 111 03/30/2025 HDL 52 03/30/2025 LDLCALC 128 (H) 03/30/2025 VLDL 22.2 03/30/2025 NONHDLC 150 (H) 03/30/2025 CHOLHDL 3.9 03/30/2025 TSH: Lab Results Component Value Date TSH 0.58 12/01/2024 Lab Results Component Value Date LDLCALC 128 (H) 03/30/2025 1. Moderate persistent asthmatic bronchitis with acute exacerbation 2. Prediabetes 3. Hyperlipidemia, unspecified hyperlipidemia type Assessment & Plan 1. Asthma - Reports worsening asthma symptoms and increased use of albuterol inhaler, which she feels is not effective - Prescription for albuterol provided for use as a rescue inhaler; Asmanex prescribed to be taken as one puff daily in the morning - Advised to return for further evaluation and potential referral to pulmonology if she continues to require albuterol despite the use os Asmanex - Monitoring for symptom control and effectiveness of new inhaler 2. Prediabetes - A1c level is 6.0, indicating prediabetes - Advised to reduce intake of fats and sugars, follow a low-carb diet, limit consumption of sweets,and consider weight loss - Prescription for metformin 500 mg provided, to be taken once daily with breakfast - Monitoring dietary changes and response to metformin 3. Elevated cholesterol - LDL cholesterol level is 128, decreased from 148; HDL cholesterol is 52, providing some cardiac protection - Advised to manage cholesterol levels through diet and exercise - Monitoring cholesterol levels and considering medication if levels do not improve or worsen - Encouraged lifestyle modifications for cholesterol management FOLLOW-UP: Follow up in about 6 months (around 10/12/2025) for follow up with PCP. Angela Andres NP ADULT [address] Today's documentation was made using voice recognition software.This note may contain grammatical errors secondary to this software. documented in this encounter Plan of Treatment Upcoming Encounters Date Type Department Care Team (Late st Contact Info) Description 08/15/2025 9:30 AM EST Office Visit [address] [phone] Shira Du MD [address] [place], [place] 12/07/2025 8:00 AM EDT Office Visit [address] [phone] Shira Du MD [address] [place], [place] documented as of this encounter Visit Diagnoses Diagnosis Moderate persistent asthmatic bronchitis with acute exacerbation- Primary Prediabetes Other abnormal glucose Hyperlipidemia, unspecified hyperlipidemia type documented in this encounter Additional Health Concerns Infection Onset Date Last Indicated Resolved Time Herpes simplex 12/01/2024 12/01/2024 Assessment Noted Time PHQ-9 Depression Total Score: 0 01/01/20 25 3:19 PM EDT documented as of this encounter Care Teams Cleaning Professional Relationship Specialty Start Date End Date Shira Du MD [address] [place] [id number] PCP - General 10/14/22 documented as of this encounter
[2025-04-14 06:13] VITALS: BP 99/51; PULSE 74; RESP 16; TEMP 36.6; O2SAT 95; BMI 29.7
--- OUTSIDE RECORDS SUMMARY | 2025-04-14 06:36 | XMS_ITS ---
Author Name [facility] Organization Unknown Care Team Organization Name Specialty Phone Email Start Date End Da te [facility] DUDLEY ENRIQUEZ Primary Care [email or web address] 01/12/2023 04/25/2024 [facility] 07/15/2022 04/25/2024
--- NOTE | 2025-04-14 06:59 | ED.EAR ---
HPI - Ear Problem General Chief complaint: Ear Problems Stated complaint: sore throat Time Seen by Provider: 04/14/25 06:06 Source: patient Mode of arrival: ambulatory Limitations: no limitations History of Present Illness ED Provider: Dr. Cat Lin HPI Narrative: Patient comes to the emergency room complaining of sore throat for couple of days. Patient states that she also have left-sided pain. No recent swimming, no fever or chills, no nausea vomiting diarrhea. Related Data Previous Rx's ?Medication ?Instructions ?Recorded albuterol sulfate 2.5 mg/0.5 mL 5 mg inhalation Q6H PRN shortness 12/04/22 solution for nebulization of breath or wheezing #30 ea albuterol sulfate 90 mcg/actuation 1 inh inhalation QID PRN shortness 12/04/22 aerosol inhaler of breath or wheezing #8.5 grams doxycycline hyclate 100 mg tablet 100 mg PO BID 7 days #14 tabs 12/04/22 prednisone 20 mg tablet 20 mg PO DAILY 7 days #7 tabs 12/04/22 ondansetron 4 mg disintegrating 4 mg PO Q6-8H PRN nausea and 05/30/23 tablet vomiting #7 tabs pantoprazole 40 mg tablet,delayed 40 mg PO DAILY #30 tabs 05/30/23 release (Protonix) penicillin V potassium 500 mg 500 mg PO BID 10 days #20 tabs 04/14/25 tablet Allergies Allergy/AdvReac Type Severity Reaction Status Date / Time JUVEDERM Allergy Intermediate LIP Uncoded 04/14/25 06:16 SWELLING Review of Systems Review of Systems: Constitutional : No Weight loss, No Fever, No Chills, No Night Sweats, No Fatigue, No Malaise ENT/Mouth : No Hearing loss, complaining of left-sided Ear Pain, No Nasal Congestion, No Sinus Pain, No Hoarseness, complaining of sore throat, No Rhinorrhea, No Swallowing Difficulty Eyes: No Eye Pain, No Swelling, No Redness, No Foreign Body, No Discharge, No Vision Changes Cardiovascular : No Chest Pain, No SOB, No Dyspnea on Exertion, No Orthopnea, No Edema, No Palpitations Respiratory : No Cough, No Sputum, No Wheezing, No Smoke Exposure, No Dyspnea Gastrointestinal : No Nausea, No Vomiting, No Diarrhea, No Constipation, No abdominal Pain, No Hematochezia, No Melena Genitourinary : no irregular bleeding, No Dysuria, No Urinary Frequency, No Hematuria, No Urinary Incontinence, No Urgency, No Flank Pain, No Urinary Flow Changes, No Hesitancy Musculoskeletal : No joint pain, No Myalgias, No Joint Swelling Skin : No Skin Lesions, No rash Neuro : No Weakness, No Numbness, No Paresthesias, No Loss of Consciousness, No Dizziness, No Headache Psych : No Anxiety/Panic, No Depression, No SI/HI/AH/VH, No Social Issues, Heme/Lymph: No Bruising, No Bleeding,No Lymphadenopathy Endocrine : No Polyuria, No Polydipsia, No Temperature Intolerance [facility] Past Medical History Medical History No known health problems Social History Social History Alcohol intake: current Alcohol intake frequency: holidays/special occasions only Smoked in Last 30 Days: No Use of substances other than those prescribed or required for medical reasons: No Advance Directives: No Do you have a plan to hurt others: No Plan Patient : No Physical Exam Exam: Exam: Appearance: Alert. Oriented X3. No acute distress. Eyes: Pupils equal, round and reactive to light. ENT: Pharynx is mildly erythematous, no obvious abscess, uvula is midline, palatine tonsils are not swollen Neck: Normal inspection. Neck supple. No lymph nodes noted. No crepitus CVS: Normal heart rate and rhythm. Pulses normal. Normal S1 and S2 Respiratory: No respiratory distress. Breath sounds normal. No Wheezing. No rales Abdomen: Soft and nontender. No rigidity. No distention. Skin: Skin warm and dry. Normal skin color. Normal skin turgor. Extremities: No lower extremity edema. No Lacerations. No Rash Neuro: Oriented X 3. No motor deficit. No sensory deficit. Moving all extremities. No slurred speech. CN 2 through 12 grossly intact Psych: calm, cooperative, normal affect Vital Signs: Vital Signs: Last Vital Signs Temp 98 F 04/14/25 06:13 Pulse 74 04/14/25 06:13 Resp 16 04/14/25 06:13 BP 99/51 L 04/14/25 06:13 Pulse Ox 95 04/14/25 06:13 O2 Del Method Room Air 04/14/25 06:13 BMI result Body Mass Index 29.7 Course Course Course Narrative: Patient's labs pending. Patient likely having viral pharyngitis. Patient states that she is prone to having viral pharyngitis. For symptomatic treatment, patient was given p.o. Decadron and viscous lidocaine. Reevaluation(s) Reevaluation #1: Kenneth Grubbs MD,04/14/25 at 09:37 hours I assumed care of this patient from my colleague, Dr. Cat Lin at 07:00 hours pending the patient's SARs and rapid strep tests. The patient's COVID-19, influenza and RSV tests were negative. Patient's rapid strep test was positive. I did discuss this with the patient. Patient was started on penicillin 500 mg q.12 hours times 10 days. The patient was advised to take Tylenol ibuprofen for pain. She was also advised to gargle salt water. She was given printed and verbal instructions and discharged home. Medications Administered Discontinued Medications Generic Name Dose Route Start Last Admin Trade Name Freq PRN Reason Stop Dose Admin Acetaminophen 650 mg 04/14/25 07:34 04/14/25 07:39 Acetaminophen 325 Mg Tablet PO 04/14/25 07:35 650 mg ONCE ONE Administration Lidocaine HCl 15 ml 04/14/25 07:44 04/14/25 07:47 Lidocaine Hcl Viscous 2 % 15 Ml Solution MUCOUS MEM 04/14/25 07:45 15 ml ONCE ONE Administration Medical Decision Making Medical Decision Making MDM Narrative: Serology report pending Sign-out given to my colleague Dr. Humera Grubbs MD, 04/14/25 at 09:30 hours Patient's COVID-19, influenza and RSV tests were negative. Patient's rapid strep was positive. Lab Data Labs: Lab Results 04/14/25 Range/Units 06:50 Influenza Type A (PCR) NEGATIVE (Negative) Influenza Type B (PCR) NEGATIVE (Negative) RSV RNA Qual (PCR) NEGATIVE (Negative) SARS-CoV-2 RNA (RT-PCR) NEGATIVE (Negative) S. pyogenes GrpA MAGDA Positive A (Negative) Discharge Plan Discharge Clinical Impression: Strep throat Patient Disposition: Home, Self-Care Instructions: Pharyngitis (ED) Additional Instructions: Your COVID-19, influenza and RSV tests were negative. Your rapid strep test was positive for Streptococcus which confirms that you have strep throat. Take penicillin 500 mg pills, 1 pill every 12 hours for 10 days. Since very important that you finish the whole 10 day prescription. Take ibuprofen 200 mg pills, 2 pills every 6 hours as needed for pain or fever. Take Tylenol (acetaminophen) 500 mg pills, 2 pills every 6 hours as needed for pain or fever. Put 1 tsp of salt water in 8 oz of warm water and then gargle the 8 oz. Do this 3 times a day for the next 2-3 days to help improve your pain. Follow-up with your doctor in 2 days. Please return to the emergency department if your symptoms get worse or if you develop any symptoms that are concerning to you. Prescriptions: New penicillin V potassium 500 mg tablet 500 mg PO BID 10 Days Qty: 20 0RF No Action prednisone 20 mg tablet 20 mg PO DAILY 7 Days Qty: 7 0RF doxycycline hyclate 100 mg tablet 100 mg PO BID 7 Days Qty: 14 0RF albuterol sulfate 90 mcg/actuation HFA aerosol inhaler 1 inh inhalation QID PRN (Reason: shortness of breath or wheezing) Qty: 8.5 0RF albuterol sulfate 2.5 mg/0.5 mL solution for nebulization 5 mg inhalation Q6H PRN (Reason: shortness of breath or wheezing) Qty: 30 0RF pantoprazole [Protonix] 40 mg tablet,delayed release (DR/EC) 40 mg PO DAILY Qty: 30 0RF ondansetron 4 mg tablet,disintegrating 4 mg PO Q6-8H PRN (Reason: nausea and vomiting) Qty: 7 0RF Print Language: Moroccan
[2025-04-14 07:35] LABS: Resp Syncy Virus RNA Qual PCR NEGATIVE (Negative); SARS COV2 PCR INHOUSE NEGATIVE (Negative)
[2025-04-14 07:47] LABS: IDNOW Serial# 6674DD1D; Strep A Nucleic Acid Positive (Negative)
[2025-04-14] MEDS: Lidocaine HCl Viscous 2 % 15 ML SOLUTION MUCOUS MEM (07:47)
--- NOTE | 2025-04-14 07:58 | PC.NURSE ---
Pt medicated per orders for 8/10 throat pain; awaiting dispo
[2025-04-14 09:45] VITALS: BP 111/65; PULSE 68; RESP 16; TEMP 36.8; O2SAT 95
== END 2025-04-14 09:46 | disposition home or self-care (01) ==
PROVIDERS: Emergency Medicine; Emergency Provider Emergency Medicine Emergency Medical Services; PCP Internal Medicine
DX: J02.0 Streptococcal pharyngitis (principal); J02.9 Acute pharyngitis, unspecified
CPT/HCPCS: 87637; 87651; 99283

== ENCOUNTER 2025-06-04 14:45 | Emergency (ER) | payer OTHER, SELFPAY ==
--- NOTE | ~2025-06-04 | XR_ITS ---
CLINICAL HISTORY: fall pain Three views of the left foot. COMPARISON: None provided. FINDINGS: Soft tissue swelling overlying the forefoot. No ankle joint effusion. Small opposite of the base of the 2nd metatarsal and 2nd cuneiform. Small ossification present along the medial margin of the 2nd metatarsal base. There is widening of the base of the 1st and 2nd metatarsals. Remaining metatarsals appear intact. Tarsal bones and phalanges appear intact. IMPRESSION: 1. Probable Lisfranc ligament injury. 2. Diffuse soft tissue swelling overlying the dorsal aspect of the left foot. This document has been electronically signed by: Salazar Casey MD on 06/04/2025 16:48:34
--- NOTE | ~2025-06-04 | XR_ITS ---
CLINICAL HISTORY: fall. pain Three views of the left ankle. COMPARISON: None provided. FINDINGS: No ankle joint effusion. Soft tissue swelling overlying the left ankle. Ankle mortise appears symmetric on non-stressed views. Talar dome appears intact. Distal tibia and fibula appear intact. Visualized tarsal bones appear intact. IMPRESSION: 1. Soft tissue swelling overlying the left ankle. This document has been electronically signed by: Salazar Casey MD on 06/04/2025 16:49:03
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
[2025-06-04 15:17] VITALS: BP 130/76; PULSE 80; RESP 17; TEMP 36.3; O2SAT 97; BMI 25.8
--- OUTSIDE RECORDS SUMMARY | 2025-06-04 16:38 | XMS_ITS | Clinical Summary ---
Author Organization [address] Address [address] [place] [phone] Phone Care Team Providers Care Welcome Hostess Name Role Phone Shira Du MD Primary Care Provider Allergies No known active allergies Medications methocarbamoL (ROBAXIN) 750 mg tablet TAKE 1 TABLET BY MOUTH 3 TIMES DAILY NEEDED (PAIN OR SPASM). 4 Active mv-min/iron/foli c/calcium/vitK (WOMEN'S MULTIVITAMIN ORAL) Multiple Vitamins-Mineral s (One Daily Multivitamin Women) Tab: Take 1 Tablet by mouth daily. - Oral Active acetaminophen (TYLENOL 8 HOUR) 650 mg 8 hr tablet Take 1 Tablet by mouth every 8 hours as needed for Pain. - Oral Active cholecalciferol (VITAMIN D-3) 50 mcg (2,000 unit) capsule TAKE 1 CAPSULE BY MOUTH EVERY DAY 90 capsule 3 4 Active diclofenac (VOLTAREN) 75 mg EC tablet TAKE 1 TABLET BY MOUTH TWICE A DAY NEEDED FOR PAIN DO NOT CRUSH, CHEW, OR SPLIT 30 tablet 2 5 Active albuterol HFA (Proventil HFA) 90 mcg/actuation inhaler Inhale 2 puffs by mouth every 4 (four) hours if needed for wheezing or shortness of breath. 6.7 g 5 026 Active mometasone (Asmanex Twisthaler) 220 mcg/ actuation (60) aerosol powdr breath activated inhaler Inhale 1 puff by mouth 1 (one) time each day in the evening. 1 each 12 5 026 Active metFORMIN XR (GLUCOPHAGE-XR) 500 mg 24 hr tablet Take 1 tablet (500 mg total) by mouth 1 (one) time each day with breakfast. Do not crush, chew, or split. 90 tablet 1 5 Active Active Problems Problem Noted Date Diagnosed Date Bulging of lumbar intervertebral disc 06/07/2024 Chronic pain of right wrist 06/07/2024 Hypercholesterolemia 06/07/2024 Low blood pressure reading 06/07/2024 Osteoarthritis of lumbosacral spine 06/07/2024 Prediabetes 06/07/2024 Vitamin D deficiency 04/28/2022 Submandibular lymphadenopathy 11/18/2019 Thyroid cyst 11/08/2019 Pain on swallowing 11/08/2019 Subclinical hyperthyroidism 12/28/2018 Unintentional weight loss 10/28/2018 Overview (06/07/2024): Referred to endo 2018; re-referred 2019 Lumbar facet arthropathy 08/23/2018 Overview (06/07/2024): MR OF THE LUMBAR SPINE 2012 - chronic low back pain with radicular symptoms Technique: MR of the lumber spine was performed without contrast utilizing the standard departmental protocol. COMPARISON: None. FINDINGS: Conus medullaris terminates at the L1-L2 level, and demonstrates normal signal. There is no abnormal thickening or clumping of the cauda equina nerve roots. There is normal alignment of the lumbar spine. Vertebral body heights are normal. Marrow signal is normal. Minimal disc bulges at L1-L2 through L5-S1 are unchanged. No disc herniation or nerve root impingement seen. A possible 5 mm left L5 perineural cyst in the left lateral recess at the mid L5 level is unchanged, typically asymptomatic. A tiny left L5-S1 periarticular facet joint cyst is no longer seen. There is a tiny right posterior L4-L5 periarticular facet joint cyst. IMPRESSION: Mild degenerative changes including right L4-L5 facet arthropathy. No nerve root impingement seen. Low back pain 11/08/2012 Encounters Date Type Department Care Team Description 04/11/2025 10:15 AM EDT Office Visit Adult Medicine [address] [phone] Angela Andres, [employer] Moderate persistent asthmatic bronchitis with acute exacerbation (Primary Dx); Prediabetes; Hyperlipidemia, unspecified hyperlipidemia type from Last 3 Months Immunizations Immunization Administration Dates Next Due Tdap Tetanus diptheria acell ular pertussis (Boostrix; Adacel) 7yo and older 11/11/2016 Surgical History Surgery Date Site/Laterality Comments WISDOM TOOTH EXTRACTION PROCEDURE: HISTORICAL WISDOM TEETH EXTRACTION OTHER SURGICAL HISTORY Bilateral PROCEDURE: HISTORY OTHER; COMMENT: Breast implants OTHER SURGICAL HISTORY 2021 PROCEDURE: HISTORY OTHER; COMMENT: BBL OTHER SURGICAL HISTORY 2021 PROCEDURE: HISTORY OTHER; COMMENT: lipo OTHER SURGICAL HISTORY Bilateral PROCEDURE: IMPLANT BREAST SILICONE/EQ; COMMENT: silicone 2019 Medical History Medical History Date Comments Back ache DX:Back ache Arthritis DX:Arthritis; CO MMENT: causes the back pain Neck pain, musculoskeletal 2018 DX:Ne ck pain, musculoskeletal Depression 07/04/2014 DX:Depression Unintentional weight loss 10/28/2018 DX:Uni ntentional weight loss Pain on swallowing 11/08/2019 DX:Pain on sw allowing Thyroid cyst 11/08/2019 DX:Thyroid cyst Gonorrhea contact, treated 12/25/2022 DX:Go norrhea contact, treated Family History Medical History Relation Name Comments No Known Problems Brother No Known Problems Daughter 1 No Known Problems Daughter 2 No Known Problems Father no contact No Known Problems Maternal Grandfather No Known Problems Maternal Grandmother Lymphoma Mother Autoimmune disease Neg Hx Breast cancer Neg Hx Colon cancer Neg Hx Coronary artery disease Neg Hx Diabetes Neg Hx Heart attack Neg Hx Heart failure Neg Hx Hyperlipidemia Neg Hx Hypertension Neg Hx Mental illness Neg Hx Prostate cancer Neg Hx Sleep apnea Neg Hx Thyroid disease Neg Hx Relation Name Status Comments Brother Alive Daughter 1 Alive Daughter 2 Alive Father Alive Maternal Grandfather Maternal Grandmother Alive Mother Social History Tobacco Use Types Packs/Day Years [...] Record ed Within the last 3 months, babs schrader many times did you visit the emergency [...] Date Recorded What is your living situation? Unrecognized valu e 12/31/2024 Comments Unknown Sex and Gender Information Value Date Recorded Sex Assigned at Not on file Legal Sex Female 2:15 AM EST Gender Identity Not on file Sexual Orientation Not on file Obstetrics History Last Filed Vital Signs Vital Sign Reading [...] Mass Index 29.29 04/11/2025 9:59 AM EDT Plan of Treatment Upcoming Encounters Date Type Department Care Team (Late st Contact Info) Description 08/15/2025 9:30 AM EST Office Visit Adult Medicine [address] [phone] Shira Du MD [address] [place], [place] 12/07/2025 8:00 AM EDT Office Visit Adult Medicine [address] [phone] Shira Du MD [address] [place], [place] Health Maintenance Due Date Last Done Comments Pneumococcal Vaccine: Pediatrics (0 to 5 Years) and At-Risk Patients (6 to 49 Years) (1 of 2 - PCV) 2002 COVID-19 Vaccine (1 - season) 2025 Influenza Vaccine (#1) 2025 Hepatitis B Vaccines (1 of 3 - 19+ 3-dose series) 09/07/2025 Postponed from 2002 (Patient Refused) Breast Cancer Screening 12/06/2025 12/07/19 24, 10/05/2023, 07/11/2023 Social Influencers of Health Screening 12/31/2025 12/31/2024, 11/30/2024 Cervical Cancer Screening: HPV 08/26/2026 08/26/2021 DTaP,Tdap,and Td Vaccines (2 - Td or Tdap) 11/11/2026 11/11/2016 Cholesterol Screening (Lipid Panel) 03/30/2030 03/30/2025, 12/01/2024, 05/25/2024, Additional history exists HIV Screening Completed 12/01/2024, 08/26/2021 Hepatitis C Screening Completed 12/01/2024, 023 Depression Screening Completed 12/31/2024, 07/07/20 23 HIB Vaccines Aged Out No longer eligi ble based on patient's age to complete this topic HPV Vaccines Aged Out No longer eligi ble based on patient's age to complete this topic Hepatitis A Vaccines Aged Out No long er eligible based on patient's age to complete this topic IPV Vaccines Aged Out No longer eligi ble based on patient's age to complete this topic MMR Vaccines Aged Out No longer eligi ble based on patient's age to complete this topic Meningococcal ACWY Vaccine Aged Out N o longer eligible based on patient's age to complete this topic Meningococcal B Vaccine Aged Out No l onger eligible based on patient's age to complete this topic RSV Immunization Patients Under 20 months Aged Out No longer eligible based on patient's age to complete this topic Varicella Vaccines Aged Out No longer eligible based on patient's age to complete this topic Procedures Procedure Name Priority Date/Time Associated Diagnosis Comments LIPID PANEL WITH REFLEX TO DIRECT LDL Routine 03/30/2025 9:16 AM EDT Hyperlipidemia, unspecified hyperlipidemia type HEMOGLOBIN A1C Routine 03/30/2025 9:16 AM EDT Prediabetes HEPATITIS PANEL, ACUTE WITH REFLEX TO CONFIRMATION Routine 12/01/2024 9:15 AM EDT Annual physical exam HIV 1, 2 ANTIBODY, P24 ANTIGEN WITH REFLEX TO DIFFERENTIATION Routine 12/01/2024 9:15 AM EDT Annual physical exam DIAGNOSTIC MAMMOGRAPHY WITH CAD UNILATERAL Routine 12/07/2023 10:59 AM EDT Other abnormal and inconclusive findings on diagnostic imaging of breast DEPRESSION SCREENING Routine 07/07/2023 HPV Routine 08/26/2021 from Last 3 Months or Most Recently Relevant to Health Maintenance Results * (ABNORMAL) Lipid panel with reflex to direct LDL (03/30/2025 9:16 AM EDT) Cholesterol 202(H) 0 - 200 mg/dL LAB CHEMISTRY METHOD 03/30/2025 1:07 PM EDT [facility] Triglycerides 111 0 - 150 mg/dL LAB CHEMISTRY METHOD 03/30/2025 1:07 PM EDT [facility] HDL 52 >=40 mg/dL LAB CHEMISTRY METHOD 03/30/2025 1:07 PM EDT [facility] LDL Calculated 128(H) 0 - 100 mg/dL LAB CHEMISTRY METHOD 03/30/2025 1:07 PM EDT [facility] VLDL Cholesterol Fidencio 22.2 mg/dL LAB CHEMISTRY METHOD 03/30/2025 1:07 PM EDT [facility] Non HDL Chol. (LDL+VLDL) 150(H) <145 mg/dL LAB CHEMISTRY METHOD 03/30/2025 1:07 PM EDT [facility] Chol/HDL Ratio 3.9 0.0 - 4.4 LAB CHEMISTRY METHOD 03/30/2025 1:07 PM EDT [facility] Blood Venous blood specimen / Unknown Venipuncture / Unknown 03/30/2025 9:16 AM EDT 03/30/2025 9:16 AM EDT Shira Du MD LAB BLOOD ORDERABLES Final Result [facility] [address] [place] [address], [place] [phone] * Hemoglobin A1c (03/30/2025 9:16 AM EDT) Hemoglobin A1C 6.0 <6.5 % LAB CHEMISTRY METHOD 03/30/2025 1:28 PM EDT [facility] Mean Bld Glu Estim. 126 mg/dL LAB CHEMISTRY METHOD 03/30/2025 1:28 PM EDT [facility] Blood Venous blood specimen / Unknown Venipuncture / Unknown 03/30/2025 9:16 AM EDT 03/30/2025 9:16 AM EDT Shira Du MD LAB BLOOD ORDERABLES Final Result Performing Organization Address City/[facility]/ZIP Co de Phone Number [facility] [address] [place] [address], * HIV 1,2 antibody, p24 antigen with reflex to differentiation (12/01/2024 9:15 AM EDT) [facility] HIV Combo AB/AG Negative Negative LAB CHEMISTRY METHOD 12/01/2024 4:22 PM EDT [facility] Blood Venous blood specimen / Unknown Venipuncture / Unknown 12/01/2024 9:15 AM EDT 12/01/2024 9:15 AM EDT [facility] - 12/01/2024 4:22 PM EDT This assay is a 4th generation assay allowing for earlier detection of HIV infection by detecting the presence of the HIV-1 p24 antigen as well as the traditional antibodies to HIV type 1 (including group O) and type 2. Use of a 4th generation assay is the current CDC recommendation for HIV screening. Shira Du MD LAB BLOOD ORDERABLES Final Result Performing Organization Address [facility] Co de Phone Number [facility] [address] [place] [address], [place] [phone] * Hepatitis panel, acute with reflex to confirmation (12/01/2024 9:15 AM EDT) [facility] Hepatitis B Surface Ag Negative Negative LAB CHEMISTRY METHOD 12/01/2024 4:23 PM EDT [facility] Hepatitis A Antibody IgM Negative Negative LAB CHEMISTRY METHOD 12/01/2024 4:23 PM EDT [facility] Hep B Core IgM Negative Negative LAB CHEMISTRY METHOD 12/01/2024 4:23 PM EDT [facility] Hepatitis C Antibody Negative Negative LAB CHEMISTRY METHOD 12/01/2024 4:23 PM EDT [facility] Blood Venous blood specimen / Unknown Venipuncture / Unknown 12/01/2024 9:15 AM EDT 12/01/2024 9:15 AM EDT Shira Du MD LAB BLOOD ORDERABLES Final Result [facility] [address] [place] [address], [place] [phone] * DIAGNOSTIC MAMMOGRAPHY WITH CAD UNILATERAL (12/07/2023 10:59 AM EDT) Anatomical Region Laterality Modality Mammography 11/12/2023 9:40 AM EST Narrative 12/07/2023 11:22 AM EDT This is a summary report. The complete report is available in the patient's medical record. If you cannot access the medical record, please contact the sending organization for a detailed fax or copy. Exam: Unilateral right diagnostic mammogram History: Asymmetry in the subareolar region of the right breast on screening mammography 07/11/2023 and diagnostic workup 10/05/2023. Diagnostic workup was limited by the nipple piercing. Comparison: Mammography 10/05/2023 and 07/11/2023, sonography 10/05/2023 Findings: Unilateral right digital diagnostic mammography was performed with tomosynthesis. Implant displaced MLO and 90 ML views were performed. Patient removed her nipple piercing for the images. Breast parenchyma is heterogeneously dense, which may obscure small masses. Previous seen asymmetry in the retroareolar breast does not persist. No mass or architectural distortion is apparent. Impression: Previous asymmetry in the retroareolar breast is not identified. Patient can return to routine annual screening mammography. BI-RADS 1-negative Procedure Note Jaylene Ramachandran MD - 04/25/2024 This is a summary report. The complete report is available in thepatient's medical record. If you cannot access the medical record, pleasecontact the sending organization for a detailed fax or copy. Exam: Unilateral right diagnostic mammogram History: Asymmetry in the subareolar region of the right breast onscreening mammography 07/11/2023 and diagnostic workup 10/05/2023.Diagnostic workup was limited by the nipple piercing. Comparison: Mammography 10/05/2023 and 07/11/2023, sonography 10/05/2023 Findings: Unilateral right digital diagnostic mammography was performed withtomosynthesis. Implant displaced MLO and 90 ML views were performed.Patient removed her nipple piercing for the images. Breast parenchyma is heterogeneously dense, which may obscure smallmasses. Previous seen asymmetry in the retroareolar breast does notpersist. No mass or architectural distortion is apparent. Impression: Previous asymmetry in the retroareolar breast is not identified. Patientcan return to routine annual screening mammography. BI-RADS 1-negative Toña Swain CNM IMG BI PROCEDURES Final Result * Depression Screening (07/07/2023) Depression Screening Abstracted Historical Provider HEALTH MAINTENANCE Final Result * Cervical Cancer Screening: HPV (08/26/2021) Pathologist [facility] Cervical Cancer Screening: HPV Abstracted ,Negative Historical Provider HEALTH MAINTENANCE Final Result from Last 3 Months or Most Recently Relevant to Health Maintenance Additional Health Concerns Infection Onset Date Last Indicated Herpes simplex 12/01/2024 12/01/[address]24 [place] [phone] [facility] Care Teams Welcome Hostess Relationship Specialty Start Date End Date Shira Du MD [address] [facility] [place] [address] PCP - General 10/14/22
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
[2025-06-04 18:12] VITALS: BP 129/80; PULSE 82; RESP 16; TEMP 36.3; O2SAT 100
== END 2025-06-04 18:12 | disposition home or self-care (01) ==
PROVIDERS: Emergency Provider Emergency Medicine Emergency Medical Services; PCP Internal Medicine
DX: S93.602A Unspecified sprain of left foot, initial encounter (principal); X58.XXXA Exposure to other specified factors, initial encounter; Y93.9 Activity, unspecified; Y92.89 Other specified places as the place of occurrence of the external cause; Y99.8 Other external cause status
CPT/HCPCS: 73610; 73630; 96372; 99284; J1885

== ENCOUNTER → 2025-06-04 15:18 | Outpatient (BNV) | payer OTHER, SELFPAY | PROVIDERS: PCP Internal Medicine; Visit Provider Radiology Diagnostic Radiology | DX: R22.42 Localized swelling, mass and lump, left lower limb (principal); W19.XXXA Unspecified fall, initial encounter | CPT/HCPCS: 73610; 73630 ==

== ENCOUNTER 2025-06-13 10:32 | Outpatient (AMB) | payer OTHER, SELFPAY ==
[2025-06-13 10:42] VITALS: BMI 29.3
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
--- OUTSIDE RECORDS SUMMARY | 2025-06-13 12:49 | XMS_ITS | Clinical Summary ---
Author Organization [address] Address [address] [place] [phone] Phone Care Team Providers Care Snow Plow Operator Name Role Phone Shira Du MD Primary [...] 10:15 AM EDT Office Visit Adult Medicine [address] [phone] Angela Andres, HUMAN RELATIONS PROFESSOR Moderate persistent asthmatic bronchitis with acute exacerbation [...] 9:30 AM EST Office Visit Adult Medicine [address] [phone] Shira Du MD [address] [place], [place] 12/07/2025 8:00 AM EDT Office Visit Adult Medicine [facility] [place] [place] [address] [place] [phone] Shira Du MD [address] [place] [address] Health Maintenance Due Date Last Done Comments Pneumococcal Vaccine: Pediatrics (0 to 5 Years) and At-Risk Patients (6 to 49 Years) (1 of 2 - PCV) 2002 HPV Vaccines (1 - 3-dose SCDM series) 2010 COVID-19 Vaccine ( - season) 2025 Influenza Vaccine (#1) 2025 Hepatitis B Vaccines (1 of 3 - 19+ 3-dose series) 09/07/2025 Postponed from 2002 (Patient Refused) Breast Cancer Screening 12/06/2025 12/07/19, 10/05/2023, 07/11/2023 Social Influencers of Health Screening 12/31/2025 12/31/2024, 11/30/2024 Cervical Cancer Screening: HPV 08/26/2026 08/26/2021 DTaP,Tdap,and Td Vaccines (2 - Td or Tdap) 11/11/2026 11/11/2016 Cholesterol Screening (Lipid Panel) 03/30/2030 03/30/2025, 12/01/2024, 05/25/2024, Additional history exists RSV Immunization Adult Patients (1 - 1-dose 75+ series) 2058 HIV Screening Completed 12/01/2024, 08/26/2021 Hepatitis C [...] mg/dL LAB CHEMISTRY METHOD 03/30/2025 1:07 PM [facility] HDL 52 >=40 mg/dL LAB CHEMISTRY METHOD 03/30/2025 1:07 PM [facility] LDL Calculated 128(H) 0 - 100 mg/dL LAB CHEMISTRY METHOD 03/30/2025 1:07 PM T [facility] VLDL Cholesterol Fidencio 22.2 mg/dL LAB CHEMISTRY METHOD 03/30/2025 1:07 PM [facility] Non HDL Chol. (LDL+VLDL) 150(H) <145 mg/dL LAB CHEMISTRY METHOD 03/30/2025 1:07 PM [facility] Chol/HDL Ratio 3.9 0.0 - 4.4 LAB CHEMISTRY METHOD 03/30/2025 1:07 PM [facility] Blood Venous blood specimen / Unknown Venipuncture / Unknown 03/30/2025 9:16 AM EDT 03/30/2025 9:16 AM EDT us Shira Du MD LAB BLOOD ORDERABLES Final Result [facility] [address] [place] [address], * Hemoglobin A1c (03/30/2025 9:16 AM EDT) Hemoglobin A1C 6.0 <6.5 % LAB CHEMISTRY METHOD 03/30/2025 1:28 PM T [facility] Mean Bld Glu Estim. 126 mg/dL LAB CHEMISTRY METHOD 03/30/2025 1:28 PM [facility] Blood Venous blood specimen / Unknown Venipuncture / Unknown 03/30/2025 9:16 AM EDT 03/30/2025 9:16 AM EDT Shira Du MD LAB BLOOD ORDERABLES Final Result Performing Organization Address City/[facility]/ZIP Co de Phone Number [facility] [address] [place] [address], [place] [phone] * HIV 1,2 antibody, p24 antigen with reflex to differentiation (12/01/2024 9:15 AM EDT) Pathologist [facility] HIV Combo AB/AG Negative Negative LAB CHEMISTRY METHOD 12/01/2024 4:22 PM EDT [facility] Blood Venous blood specimen / Unknown Venipuncture / Unknown 12/01/2024 9:15 AM EDT 12/01/2024 9:15 AM EDT Narrative [facility] - 12/01/2024 4:22 PM EDT This [...] BLOOD ORDERABLES Final Result Performing Organization Address [facility]/ZIP Co de Phone Number [facility] [address] [place] [address], [place] [phone] * Hepatitis panel, acute with reflex to confirmation (12/01/2024 9:15 AM EDT) Pathologist [facility] Hepatitis B Surface Ag Negative Negative LAB [...] Du MD LAB BLOOD ORDERABLES Final Result [facility] [address] [place] [address], * DIAGNOSTIC MAMMOGRAPHY WITH CAD UNILATERAL (12/07/2023 [...] annual screening mammography. BI-RADS 1-negative Toña Swain CN IM BI PROCEDURES Final Result * Depression Screening (07/07/2023) Pathologist [facility] Depression Screening Abstracted Historical Provider HEALTH MAINTENANCE Final Result * Cervical Cancer Screening: HPV (08/26/2021) Pathologist [facility] Cervical Cancer Screening: HPV Abstracted ,Negative Historical Provider HEALTH MAINTENANCE Final Result from Last 3 Months or Most Recently Relevant to Health Maintenance Additional Health Concerns Infection Onset Date Last Indicated Herpes simplex 12/01/2024 12/01/2024 [place] [id number] [facility] [employer] Care Teams Snow Plow Operator Relationship Specialty Start Date End Date Shira Du MD [address] [facility] [place] [address] [facility] - General 10/14/22
== END 2025-06-13 12:32 | disposition home or self-care (01) ==
LOC: HO.HPODS 10:32
PROVIDERS: PCP Internal Medicine; Visit Provider Student in an Organized Health Care Education/Training Program
DX: S93.325A Dislocation of tarsometatarsal joint of left foot, initial encounter (principal); S93.622A Sprain of tarsometatarsal ligament of left foot, initial encounter; S99.922A Unspecified injury of left foot, initial encounter; M79.672 Pain in left foot
CPT/HCPCS: 29515; 99204

== ENCOUNTER → 2025-06-13 10:32 | Outpatient (BNVA) | payer OTHER, SELFPAY | PROVIDERS: PCP Internal Medicine; Visit Provider Student in an Organized Health Care Education/Training Program | DX: S93.325A Dislocation of tarsometatarsal joint of left foot, initial encounter (principal); S93.622A Sprain of tarsometatarsal ligament of left foot, initial encounter; S99.922A Unspecified injury of left foot, initial encounter; M79.672 Pain in left foot; X50.1XXA Overexertion from prolonged static or awkward postures, initial encounter; Y93.9 Activity, unspecified; Y92.9 Unspecified place or not applicable; Y99.9 Unspecified external cause status | CPT/HCPCS: 29515; 99202 ==

== ENCOUNTER 2025-06-29 09:50 | Outpatient (REF) | payer OTHER, SELFPAY ==
--- NOTE | ~2025-06-29 | CT_ITS ---
EXAM: CT Foot Lt Wo Iv Con TECHNIQUE: Axial CT was performed through the left foot without contrast. Coronal and sagittal reformatted images were generated from the original axial data set. ALARA: The examination used one or more of the following radiation dose reduction techniques: Automated exposure control, iterative reconstruction, and/or adjustment of mA and/or KV. INDICATION: S93.325A - Dislocation of tarsometatarsal joint of left foot, initial encounter PRIOR: May 27, 2025 x-ray FINDINGS: Lisfranc ligament: The main Lisfranc ligament appears grossly intact, but is not optimally demonstrated by CT. Soft tissues/Lo's Neuroma: No gross evidence of Lo's. There is no muscle edema or fatty atrophy. There is reticulation of the subcutaneous soft tissues in the plantar foot. Achilles tendon is intact and not thickened. Peroneal, medial, and anterior ankle tendons are intact. Syndesmotic ligaments appear intact. Talofibular and calcaneofibular ligaments appear intact. Deltoid ligament complex is grossly intact. Metatarsophalangeal (MTP) joint and sesamoids of the great toe: Joint capsule structures and plantar plate complex are grossly intact. There are no degenerative changes. Lesser MTP joints & Plantar plates: Joint capsule structures and plantar plate complexes are grossly intact. There are no degenerative changes. Bones: There is a fracture through the plantar base of the second metatarsal with incomplete cortical margins. No periosteal new bone formation is identified. The main Lisfranc ligament listhesis appears to span both dorsal and plantar to the fracture. Talar dome appears intact. CT/CT foot LT wo IV con IMPRESSION: There is an age-indeterminate fracture involving the plantar base of the second metatarsal extending into the proximal articular surface. The fracture line is at the enthesis of the main Lisfranc ligament. The margins along the fracture are somewhat sclerotic and there is no periosteal new bone formation raising question of a chronic fracture with nonunion, but acute fracture is not entirely excluded. Electronically signed by: Ian Ang MD 06/29/2025 10:33 AM EDT
--- OUTSIDE RECORDS SUMMARY | 2025-06-29 11:18 | XMS_ITS | Clinical Summary ---
Author Organization [address] Address [address] [place] [phone] Phone Care Team Providers Care Software Asset Manager Name Role Phone Shira Du MD Primary [...] 10:15 AM EDT Office Visit Adult Medicine [address] [phone] Angela Andres, SUBSTATION SUPERVISOR Moderate persistent asthmatic bronchitis with acute [...] 9:30 AM EST Office Visit Adult Medicine [address] [phone] Shira Du MD [address] [place], [place] 12/07/2025 8:00 AM EDT Office Visit Adult Medicine [facility] [address] [place] [phone] Shira Du MD [address] [place] [address] Health Maintenance Due Date Last Done Comments [...] LAB CHEMISTRY METHOD 03/30/2025 1:07 PM EDT [facility] Triglycerides 111 0 - 150 mg/dL LAB CHEMISTRY METHOD 03/30/2025 1:07 PM [facility] HDL 52 >=40 mg/dL LAB CHEMISTRY METHOD 03/30/2025 1:07 PM [facility] LDL Calculated 128(H) 0 - 100 mg/dL LAB CHEMISTRY METHOD 03/30/2025 1:07 PM T [facility] VLDL Cholesterol Fidencio 22.2 mg/dL LAB CHEMISTRY METHOD 03/30/2025 1:07 PM [facility] Non HDL Chol. (LDL+VLDL) 150(H) <145 mg/dL LAB CHEMISTRY METHOD 03/30/2025 1:07 PM [facility] Chol/HDL Ratio 3.9 0.0 - 4.4 LAB CHEMISTRY METHOD 03/30/2025 1:07 PM [facility] Blood Venous blood specimen / Unknown Venipuncture / Unknown 03/30/2025 9:16 AM EDT 03/30/2025 9:16 AM EDT us Shira Du MD LAB BLOOD ORDERABLES Final Result [facility] [address] [place] [address], * Hemoglobin A1c (03/30/2025 9:16 AM EDT) Hemoglobin A1C 6.0 <6.5 % LAB CHEMISTRY METHOD 03/30/2025 1:28 PM T [facility] Mean Bld Glu Estim. 126 mg/dL LAB CHEMISTRY METHOD 03/30/2025 1:28 PM [facility] Blood Venous blood specimen / Unknown Venipuncture / Unknown 03/30/2025 9:16 AM EDT 03/30/2025 9:16 AM EDT Shira Du MD LAB BLOOD ORDERABLES Final Result Performing Organization Address City/[facility]/ZIP Co de Phone Number [facility] [address] [place] [address], [place] [phone] * HIV 1,2 antibody, p24 antigen with reflex to differentiation (12/01/2024 9:15 AM EDT) Pathologist [facility] HIV Combo AB/AG Negative Negative LAB CHEMISTRY METHOD 12/01/2024 4:22 PM EDT [facility] Blood Venous blood specimen / Unknown Venipuncture / Unknown 12/01/2024 9:15 AM EDT 12/01/2024 9:15 AM EDT Narrative [facility] - 12/01/2024 4:22 PM EDT [...] BLOOD ORDERABLES Final Result Performing Organization Address [facility]/ZIP Co de Phone Number [facility] [address] [place] [address], [place] [phone] * Hepatitis panel, acute with reflex to confirmation (12/01/2024 9:15 AM EDT) Pathologist [facility] Hepatitis B Surface Ag Negative Negative LAB CHEMISTRY METHOD 12/01/2024 4:23 PM EDT [facility] Hepatitis A Antibody IgM Negative Negative LAB CHEMISTRY METHOD 12/01/2024 4:23 PM EDT [facility] Hep B Core IgM Negative Negative LAB CHEMISTRY METHOD 12/01/2024 4:23 PM EDT [facility] Hepatitis C Antibody Negative Negative LAB CHEMISTRY METHOD 12/01/2024 4:23 PM EDT [facility] Blood Venous blood specimen / Unknown Venipuncture / Unknown 12/01/2024 9:15 AM EDT 12/01/2024 9:15 AM EDT Shira Du MD LAB BLOOD ORDERABLES Final Result [facility] [address] [place] [address], * DIAGNOSTIC MAMMOGRAPHY WITH CAD UNILATERAL (12/07/2023 [...] Final Result * Depression Screening (07/07/2023) Pathologist [facility] Depression Screening Abstracted Historical Provider HEALTH MAINTENANCE Final Result * Cervical Cancer Screening: HPV (08/26/2021) Pathologist [facility] Cervical Cancer Screening: HPV Abstracted ,Negative Historical Provider HEALTH MAINTENANCE Final Result from Last 3 Months or Most Recently Relevant to Health Maintenance Additional Health Concerns Infection Onset Date Last Indicated Herpes simplex 12/01/2024 12/01/2024 [place] [id number] [facility] [employer] Care Teams Software Asset Manager Relationship Specialty Start Date End Date Shira Du MD [address] [facility] [place] [address] [facility] - General 10/14/22
== END 2025-06-29 09:51 | disposition home or self-care (01) ==
LOC: HO.CT 09:50
PROVIDERS: PCP Internal Medicine; Visit Provider Physician Assistant
DX: S93.325A Dislocation of tarsometatarsal joint of left foot, initial encounter (principal)
CPT/HCPCS: 73700

== ENCOUNTER → 2025-06-29 09:53 | Outpatient (BNV) | payer OTHER, SELFPAY | PROVIDERS: PCP Internal Medicine; Visit Provider Radiology Diagnostic Radiology | DX: S93.325A Dislocation of tarsometatarsal joint of left foot, initial encounter (principal) | CPT/HCPCS: 73700 ==

== ENCOUNTER 2025-06-30 09:13 | Outpatient (AMB) | payer OTHER, SELFPAY ==
[2025-06-30 09:40] VITALS: BMI 29.3
--- NOTE | 2025-06-30 09:40 | MHC.OFFVIS ---
Vital Signs 06/30/25 09:40 Height 5 ft 1 in Weight 155 lb BMI 29.3 Intake Visit Reasons: f/u CT scan, left foot lisfranc injury Intake Note: Lary is a 40 year old female who presents today for a follow up on her CT scan results and left foot lisfranc injury. Patient reports her pain has improved and she only has a slight pain to the dorsum aspect of her foot. She has no questions or concerns at this time. Allergies JUVEDERM Allergy (Intermediate, Uncoded 06/04/25 15:18) LIP SWELLING HPI Comments Details: The patient is a 40-year-old female presenting for follow-up of the left Lisfranc injury. The patient reports that the pain has reduced since the last visit but states she still experiences pain while ambulating. Patient was seen ambulating in the cam boot without the use of crutches. Patient states she has been taking the meloxicam as needed for pain. Patient denies any radiation of pain to the ankle and states it is localized to the dorsal tarsal metatarsal area. She denies any new pedal injuries. She denies any new pedal concerns. [facility] Medical History (Updated 06/13/25 @ 11:18 by Claudette Gibbs DPM) Injury of left foot Left foot pain Lisfranc's sprain Lisfranc dislocation No known health problems Social History Alcohol intake: current Alcohol intake frequency: holidays/special occasions only Review of Systems Const Details: - Musculoskeletal: Reports pain in the left foot in the tarsometatarsal joint area. All systems reviewed & are unremarkable except as noted in HPI and below Physical Exam Vital Signs: BMI result Body Mass Index 29.3 Extrem Other: Left lower extremity focused physical exam: Derm: No ecchymosis noted to the dorsum of the left forefoot. Slightly reduced edema noted to the left foot. No open lesions abrasions or wounds noted. No maceration noted. No clinical signs of infection noted. Vascular: DP/PT pulses palpable. Capillary refill time less than 3 seconds. Temperature gradient is warm to warm. Pedal hair absent. No varicosities noted. Neuro: Protective sensation is grossly intact. MSK: Pain on palpation to the dorsum of the left foot in the area of the tarsometatarsal joint. Reduced range of motion of the forefoot due to guarding from pain especially upon plantarflexion of the toes. No crepitus noted. Antalgic gait with the use of the cam boot, patient without crutches today. Range of motion of the ankle within normal limits without pain. MMT 4/5 due to guarding from pain. No fluctuance noted. Office Procedures AMB Podiatry Dressing Details of Procedure: Applied a stockinette, cast padding, an Kota bandage with the use of a cam boot to the left lower extremity. 46904 - Short leg splint Procedure code (CPT) selection complete Results Reviewed Results Reviewed: Ordered 3 views weightbearing xrays left foot to be performed prior to next visit. Podiatry read of Left foot CT scan (06/29/25): Lisfranc injury noted with fracture of the base of the 2nd metatarsal injury to the Lisfranc ligament. Positive kourtney sign noted. Mild HAV noted. Left foot CT scan (06/29/25): FINDINGS: Lisfranc ligament: The main Lisfranc ligament appears grossly intact, but is not optimally demonstrated by CT. Soft tissues/Lo's Neuroma: No gross evidence of Lo's. There is no muscle edema or fatty atrophy. There is reticulation of the subcutaneous soft tissues in the plantar foot. Achilles tendon is intact and not thickened. Peroneal, medial, and anterior ankle tendons are intact. Syndesmotic ligaments appear intact. Talofibular and calcaneofibular ligaments appear intact. Deltoid ligament complex is grossly intact. Metatarsophalangeal (MTP) joint and sesamoids of the great toe: Joint capsule structures and plantar plate complex are grossly intact. There are no degenerative changes. Lesser MTP joints & Plantar plates: Joint capsule structures and plantar plate complexes are grossly intact. There are no degenerative changes. Bones: There is a fracture through the plantar base of the second metatarsal with incomplete cortical margins. No periosteal new bone formation is identified. The main Lisfranc ligament listhesis appears to span both dorsal and plantar to the fracture. Talar dome appears intact. IMPRESSION: There is an age-indeterminate fracture involving the plantar base of the second metatarsal extending into the proximal articular surface. The fracture line is at the enthesis of the main Lisfranc ligament. The margins along the fracture are somewhat sclerotic and there is no periosteal new bone formation raising question of a chronic fracture with nonunion, but acute fracture is not entirely excluded. Podiatry Read of Left foot xrays (06/04/25): Lisfranc injury noted with positive kourtney sign. Increased spacing approximately 4 mm between 1st cuneiform and base of 2nd metatarsal. Minimal homolateral dislocation of metatarsals 2 through 5. Mild HAV noted. Soft tissue swelling noted. Podiatry Read of Left ankle xrays (06/04/25): No acute fractures or dislocations noted. Joint space within normal limits. Kager's triangle intact. Left foot xrays (06/04/25): FINDINGS: Soft tissue swelling overlying the forefoot. No ankle joint effusion. Small opposite of the base of the 2nd metatarsal and 2nd cuneiform. Small ossification present along the medial margin of the 2nd metatarsal base. There is widening of the base of the 1st and 2nd metatarsals. Remaining metatarsals appear intact. Tarsal bones and phalanges appear intact. IMPRESSION: 1. Probable Lisfranc ligament injury. 2. Diffuse soft tissue swelling overlying the dorsal aspect of the left foot. Left ankle xrays (06/04/25): FINDINGS: No ankle joint effusion. Soft tissue swelling overlying the left ankle. Ankle mortise appears symmetric on non-stressed views. Talar dome appears intact. Distal tibia and fibula appear intact. Visualized tarsal bones appear intact. IMPRESSION: 1. Soft tissue swelling overlying the left ankle. Assessment & Plan Assessment & Plan (1) Lisfranc dislocation: Code(s): S93.326A - Dislocation of tarsometatarsal joint of unspecified foot, initial encounter Category: Medical Qualifiers: Encounter type: initial encounter Laterality: left Qualified Code(s): S93.325A - Dislocation of tarsometatarsal joint of left foot, initial encounter (2) Lisfranc's sprain: Code(s): S93.629A - Sprain of tarsometatarsal ligament of unspecified foot, initial encounter Category: Medical Qualifiers: Encounter type: initial encounter Laterality: left Qualified Code(s): S93.622A - Sprain of tarsometatarsal ligament of left foot, initial encounter (3) Left foot pain: Code(s): M79.672 - Pain in left foot Category: Medical (4) Injury of left foot: Code(s): S99.922A - Unspecified injury of left foot, initial encounter Category: Medical Qualifiers: Encounter type: initial encounter Qualified Code(s): S99.922A - Unspecified injury of left foot, initial encounter Plan Patient was informed and verbally consented to the use of an ambient scribe for clinic note documentation during this visit. I discussed with the patient the findings of the CT scan, which showed a Lisfranc fracture to the base of the 2nd metatarsal and injury to the Lisfranc ligament. We talked about the importance of immobilizing the foot with a boot and avoiding weight-bearing activities to prevent further injury and displacement of the fracture fragment. I explained the potential need for surgical intervention to prevent further displacement and injury/tear to the Lisfranc ligament. if the ligament does not heal properly and the risks of developing arthritis if left untreated. The patient was advised to return in three weeks for a follow-up and repeat x-rays to monitor the healing process. - Patient is to be nonweightbearing to the left lower extremity with the use of crutches. - Recommend continued use of the CAMboot to immobilize the foot and prevent further injury. - Patient may remove cam boot upon rest but is to keep dressing at all times while keeping dressing clean dry and intact. - Due to increased instability of Lisfranc ligament, surgical intervention is recommended to prevent further dislocation and potential complications such as arthritis and arch collapse. - Patient opts for conservative treatment at this time. - Consider surgical intervention to repair the Lisfranc ligament if conservative management fails. - Ordered left three-view weight-bearing x-rays to be performed prior to next visit to assess healing progress. - Continue taking Meloxicam prn for pain. Patient is to follow up in 3 weeks for further evaluation. Orders: Orders XR foot LT min 3V 06/30/25 M79.672 - Pain in left foot, S93.325A - Dislocation of tarsometatarsal joint of left foot, initial encounter, S93.622A - Sprain of tarsometatarsal ligament of left foot, initial encounter, S99.922A - Unspecified injury of left foot, initial encounter AMB Podiatry Dressing 06/30/25 M79.672 - Pain in left foot, S93.325A - Dislocation of tarsometatarsal joint of left foot, initial encounter, S93.622A - Sprain of tarsometatarsal ligament of left foot, initial encounter, S99.922A - Unspecified injury of left foot, initial encounter Coding Level of Care Code Est Pt Level 4 (42924) Diagnoses Dislocation of tarsometatarsal joint of left foot, initial encounter S93.325A Encounter type: initial encounter Laterality: left Sprain of tarsometatarsal ligament of left foot, initial encounter S93.622A Encounter type: initial encounter Laterality: left Left foot pain M79.672 Injury of left foot, initial encounter S99.922A Encounter type: initial encounter CPT Codes Podiatry Dressing - CPT: 00933 - Short leg splint ([id number]) Time Spent (min) 50
--- OUTSIDE RECORDS SUMMARY | 2025-06-30 10:03 | XMS_ITS | Clinical Summary ---
Author Organization [address] Address [address] [place] [phone] Phone Care Team Providers Care Manager Net Name Role Phone Shira Du MD Primary Care Provider [phone] Allergies No known active allergies Medications methocarbamoL [...] 10:15 AM EDT Office Visit Adult Medicine [address] [phone] Angela Andres, BUS PERSON Moderate persistent asthmatic bronchitis with acute exacerbation [...] 9:30 AM EST Office Visit Adult Medicine [address] [phone] Shira Du MD [address] [place], [place] 12/07/2025 8:00 AM EDT Office Visit Adult Medicine [facility] [address] [place] [phone] Shira Du MD [address] [place] [address] Health Maintenance Due Date Last Done Comments [...] LAB CHEMISTRY METHOD 03/30/2025 1:07 PM EDT [facility] Triglycerides 111 0 - 150 mg/dL LAB CHEMISTRY METHOD 03/30/2025 1:07 PM [facility] HDL 52 >=40 mg/dL LAB CHEMISTRY METHOD 03/30/2025 1:07 PM [facility] LDL Calculated 128(H) 0 - 100 mg/dL LAB CHEMISTRY METHOD 03/30/2025 1:07 PM T [facility] VLDL Cholesterol Fidencio 22.2 mg/dL LAB CHEMISTRY METHOD 03/30/2025 1:07 PM [facility] Non HDL Chol. (LDL+VLDL) 150(H) <145 mg/dL LAB CHEMISTRY METHOD 03/30/2025 1:07 PM [facility] Chol/HDL Ratio 3.9 0.0 - 4.4 LAB CHEMISTRY METHOD 03/30/2025 1:07 PM [facility] Blood Venous blood specimen / Unknown Venipuncture / Unknown 03/30/2025 9:16 AM EDT 03/30/2025 9:16 AM EDT us Shira Du MD LAB BLOOD ORDERABLES Final Result [facility] [address] [place] [address], * Hemoglobin A1c (03/30/2025 9:16 AM EDT) Hemoglobin A1C 6.0 <6.5 % LAB CHEMISTRY METHOD 03/30/2025 1:28 PM T [facility] Mean Bld Glu Estim. 126 mg/dL LAB CHEMISTRY METHOD 03/30/2025 1:28 PM [facility] Blood Venous blood specimen / Unknown Venipuncture / Unknown 03/30/2025 9:16 AM EDT 03/30/2025 9:16 AM EDT Shira Du MD LAB BLOOD ORDERABLES Final Result Performing Organization Address City/[facility]/ZIP Co de Phone Number [facility] [address] [place] [address], [place] [phone] * HIV 1,2 antibody, p24 antigen with reflex to differentiation (12/01/2024 9:15 AM EDT) Pathologist [facility] HIV Combo AB/AG Negative Negative LAB CHEMISTRY METHOD 12/01/2024 4:22 PM EDT [facility] Blood Venous blood specimen / Unknown Venipuncture / Unknown 12/01/2024 9:15 AM EDT 12/01/2024 9:15 AM EDT Narrative [facility] - 12/01/2024 4:22 PM EDT This [...] BLOOD ORDERABLES Final Result Performing Organization Address [facility]/ZIP Co de Phone Number [facility] [address] [place] [address], [place] [phone] * Hepatitis panel, acute with reflex to confirmation (12/01/2024 9:15 AM EDT) Pathologist [facility] Hepatitis B Surface Ag Negative Negative LAB CHEMISTRY METHOD 12/01/2024 4:23 PM EDT [facility] Hepatitis A Antibody IgM Negative Negative LAB CHEMISTRY METHOD 12/01/2024 4:23 PM EDT [facility] Hep B Core IgM Negative Negative LAB CHEMISTRY METHOD 12/01/2024 4:23 PM EDT [facility] Hepatitis C Antibody Negative Negative LAB CHEMISTRY METHOD 12/01/2024 4:23 PM EDT [facility] Blood Venous blood specimen / Unknown Venipuncture / Unknown 12/01/2024 9:15 AM EDT 12/01/2024 9:15 AM EDT Shira Du MD LAB BLOOD ORDERABLES Final Result [facility] [address] [place] [address], * DIAGNOSTIC MAMMOGRAPHY WITH CAD UNILATERAL (12/07/2023 [...] Final Result * Depression Screening (07/07/2023) Pathologist [facility] Depression Screening Abstracted Historical Provider HEALTH MAINTENANCE Final Result * Cervical Cancer Screening: HPV (08/26/2021) Pathologist [facility] Cervical Cancer Screening: HPV Abstracted ,Negative Historical Provider HEALTH MAINTENANCE Final Result from Last 3 Months or Most Recently Relevant to Health Maintenance Additional Health Concerns Infection Onset Date Last Indicated Herpes simplex 12/01/2024 12/01/2024 [place] [phone] [facility] Care Teams Manager Net Relationship Specialty Start Date End Date Shira Du MD [address] [facility] [place] [address] [facility] - General 10/14/22
== END 2025-06-30 09:55 | disposition home or self-care (01) ==
LOC: HO.HPODS 09:14
PROVIDERS: PCP Internal Medicine; Visit Provider Student in an Organized Health Care Education/Training Program
DX: S93.325A Dislocation of tarsometatarsal joint of left foot, initial encounter (principal); S93.622A Sprain of tarsometatarsal ligament of left foot, initial encounter; M79.672 Pain in left foot; S99.922A Unspecified injury of left foot, initial encounter
CPT/HCPCS: 29515; 99214

== ENCOUNTER → 2025-06-30 09:13 | Outpatient (BNVA) | payer OTHER, SELFPAY | PROVIDERS: PCP Internal Medicine; Visit Provider Student in an Organized Health Care Education/Training Program | DX: S93.325D Dislocation of tarsometatarsal joint of left foot, subsequent encounter (principal); S93.622D Sprain of tarsometatarsal ligament of left foot, subsequent encounter; M79.672 Pain in left foot; S99.922D Unspecified injury of left foot, subsequent encounter | CPT/HCPCS: 29515; 99212 ==

== ENCOUNTER 2025-07-17 09:27 | Outpatient (REF) | payer OTHER, SELFPAY ==
--- NOTE | ~2025-07-17 | XR_ITS ---
EXAMINATION: XR FOOT, LEFT CLINICAL INFORMATION: S93.622A - Sprain of tarsometatarsal ligament of left foot, initial enco... COMPARISON: None available. TECHNIQUE: AP, lateral, and oblique views of the left foot. FINDINGS: Faint bony density projects in the space between the base of the first metatarsal and the adjacent second metatarsal overlapping the first tarsometatarsal joint on the AP view. There is mild widening of first intermetatarsal space. There is subtle lateral offset of the base of the second metatarsal relative to the intermediate cuneiform. No other abnormality is evident. XR/XR foot LT min 3V IMPRESSION: Suspected Lisfranc ligament injury possibly with avulsion fracture involving the lateral base of the first metatarsal.. Electronically signed by: Ian Ang MD 07/17/2025 11:38 AM MARGOT
--- OUTSIDE RECORDS SUMMARY | 2025-07-17 10:34 | XMS_ITS | Clinical Summary ---
Author Organization [facility] Address [address] [place] [address] Care Team Providers Care Switchboard Operator Name Role Phone Unavailable Primary Care Provider Unavailabl e Source Comments PLEASE NOTE, if this patient is a minor, it may be UNLAWFUL to discuss sensitive information that is contained in these records (such as FAMILY PLANNING, MENTAL HEALTH or SUBSTANCE ABUSE) with the minor patient's parent or other person without the patient's specific authorization.[facility] Social History Tobacco Use Types Packs/Day Years Used Date Smoking Tobacco: Never Assessed Comments Unknown Sex and Gender Information Value Date Recorded Sex Assigned at Not on file Legal Sex Female 7:17 AM PST Gender Identity Not on file Sexual Orientation Not on file Plan of Treatment Upcoming Encounters Date Type Department Care Team (Late st Contact Info) Description 08/15/2025 10:30 AM EST Office Visit [facility] [address] [place] [phone] Kaylee Story, DMD [address] [place] [address] Health Maintenance Due Date Last Done Comments Anxiety Screening 1983 Diabetes Screening 1983 HPV Screening (self-collect) 1983 HPV Screening 1983 Hepatitis C Screening 1983 Lipid Screening 1983 Pap + HPV 1983 Tobacco Screening 1983 HIV Screening 1998 Relationship Safety Screening/Counseling 1998 Hypertension Screening (#1) 2001 Imm-DTaP/Tdap/Td (1 - Tdap) 2002 Imm-Hepatitis B (1 of 3 - 19+ 3-dose series) 2 Cervical Cancer Screening 01/19/2004 Pap Smear 01/19/2004 Imm-HPV (1 - 3-dose SCDM series) 2010 Breast Cancer Screening (Mammogram) 2023 Alcohol and Drug Screen 09/07/2024 Depression Annual Screen 09/07/2024 [id number] ( season) 2025 Imm-Influenza (#1) 2025 Cervical Ablation/Cold-Knife Conization Discontinued Cervical Cryotherapy Discontinued Colposcopy Discontinued Excision/Leep Discontinued HPV Genotyping Discontinued Vaginal Pap Discontinued Vulvoscopy Discontinued
--- OUTSIDE RECORDS SUMMARY | 2025-07-17 10:34 | XMS_ITS | Clinical Summary ---
Author Organization [address] Address [address] [place] [phone] Phone Care Team Providers Care Docketing Specialist Name Role Phone Shira Du MD Primary [...] root impingement seen. Low back pain 11/08/2012 Immunizations Immunization Administration Dates Next Due Tdap [...] Years Used Date Smoking Tobacco: Former Cigarettes 0.3 Q uit: 02/11/2020 Smokeless Tobacco: Never Tobacco [...] 9:30 AM EST Office Visit Adult Medicine [facility] [address] [place] [phone] Shira Du MD [address] [facility] [place] [address] 12/07/2025 8:00 AM EDT Office Visit Adult Medicine [facility] [address] [facility] [place] [phone] Shira Du MD [address] [facility] [place] [address] Health Maintenance Due Date Last Done Comments HPV Vaccines (1 - 3-dose SCDM series) 2010 COVID-19 Vaccine ( - 2023- season) 2025 Influenza Vaccine (#1) 2025 Hepatitis [...] on patient's age to complete this topic Pneumococcal Vaccine: Pediatrics (0 to 5 Years) and At-Risk Patients (6 to 49 Years) Aged Out No longer eligible based on [...] 9:16 AM EDT Hyperlipidemia, unspecified hyperlipidemia type HEPATITIS PANEL, ACUTE WITH REFLEX TO CONFIRMATION [...] LAB CHEMISTRY METHOD 03/30/2025 1:07 PM EDT [facility] Triglycerides 111 0 - 150 mg/dL LAB CHEMISTRY METHOD 03/30/2025 1:07 PM EDT [facility] HDL 52 >=40 mg/dL LAB CHEMISTRY METHOD 03/30/2025 1:07 PM EDT [facility] LDL Calculated 128(H) 0 - 100 mg/dL LAB CHEMISTRY METHOD 03/30/2025 1:07 PM EDT [facility] VLDL Cholesterol Fidencio 22.2 mg/dL LAB CHEMISTRY METHOD 03/30/2025 1:07 PM EDT [facility] Non HDL Chol. (LDL+VLDL) 150(H) <145 mg/dL LAB CHEMISTRY METHOD 03/30/2025 1:07 PM EDT [facility] Chol/HDL Ratio 3.9 0.0 - 4.4 LAB CHEMISTRY METHOD 03/30/2025 1:07 PM EDT [facility] Blood Venous blood specimen / Unknown Venipuncture / Unknown 03/30/2025 9:16 AM EDT 03/30/2025 9:16 AM EDT Shira Du MD LAB BLOOD ORDERABLES Final Result Performing Organization Address [facility]/ZIP Co de Phone Number [facility] [address] [place] [address], * HIV 1,2 antibody, p24 antigen with reflex to differentiation (12/01/2024 9:15 AM EDT) [facility] Signature HIV Combo AB/AG Negative Negative LAB CHEMISTRY METHOD 12/01/2024 4:22 PM EDT [facility] Blood Venous blood specimen / Unknown Venipuncture / Unknown 12/01/2024 9:15 AM EDT 12/01/2024 9:15 AM EDT Narrative [facility] - 12/01/2024 4:22 PM [...] BLOOD ORDERABLES Final Result Performing Organization Address City/[facility]/ZIP Co de Phone Number [facility] [address] [place] [address], [place] [phone] * Hepatitis panel, acute with reflex to confirmation (12/01/2024 9:15 AM EDT) Hepatitis B Surface Ag Negative Negative LAB CHEMISTRY METHOD 12/01/2024 4:23 PM EDT [facility] Hepatitis A Antibody IgM Negative Negative LAB CHEMISTRY METHOD 12/01/2024 4:23 PM EDT [facility] Hep B Core IgM Negative Negative LAB CHEMISTRY METHOD 12/01/2024 4:23 PM EDT [facility] Hepatitis C Antibody Negative Negative LAB CHEMISTRY METHOD 12/01/2024 4:23 PM EDT [facility] Blood Venous blood specimen / Unknown Venipuncture / Unknown 12/01/2024 9:15 AM EDT 12/01/2024 9:15 AM EDT us Shira Du MD LAB BLOOD ORDERABLES Final Result [facility] [address] [place] [address], [place] [phone] * DIAGNOSTIC MAMMOGRAPHY WITH CAD UNILATERAL (12/07/2023 [...] Final Result * Depression Screening (07/07/2023) Pathologist [facility] Depression Screening Abstracted Historical Provider HEALTH MAINTENANCE Final Result * Cervical Cancer Screening: HPV (08/26/2021) Pathologist [facility] Cervical Cancer Screening: HPV Abstracted ,Negative [facility] Provider HEALTH MAINTENANCE Final Result from Last 3 Months or Most Recently Relevant to Health Maintenance Additional Health Concerns Infection Onset Date Last Indicated Herpes simplex 12/01/2024 12/01/[address] [facility] [place] [phone] Care Teams Docketing Specialist Relationship Specialty Start Date End Date Shira Du MD [address] [place] [address] PCP - General 10/14/22
== END 2025-07-17 09:28 | disposition home or self-care (01) ==
LOC: HO.XRAY 09:27
PROVIDERS: PCP Internal Medicine; Visit Provider Student in an Organized Health Care Education/Training Program
DX: M79.672 Pain in left foot (principal); S99.922A Unspecified injury of left foot, initial encounter
CPT/HCPCS: 73630

== ENCOUNTER → 2025-07-17 09:30 | Outpatient (BNV) | payer OTHER, SELFPAY | PROVIDERS: PCP Internal Medicine; Visit Provider Radiology Diagnostic Radiology | DX: S93.622A Sprain of tarsometatarsal ligament of left foot, initial encounter (principal) | CPT/HCPCS: 73630 ==

== ENCOUNTER 2025-07-20 09:27 | Outpatient (AMB) | payer OTHER, SELFPAY ==
[2025-07-20 10:00] VITALS: BMI 29.3
--- NOTE | 2025-07-20 10:00 | A.OFFVIS_ITS ---
Vital Signs 07/20/25 10:00 Height 5 ft 1 in Weight 155 lb BMI 29.3 Intake Visit Reasons: f/u xrays; left lisfranc injury Intake Note: Tiffanie is a 40 year old female who presents today for a follow up of xray results and left Lisfranc injury. At her last visit she was to continue the use of the CAMboot as well as the continuation of the meloxicam prn for pain. Today she reports she is doing well with no further concerns at this time. Allergies JUVEDERM Allergy (Intermediate, Uncoded 06/04/25 15:18) LIP SWELLING HPI Comments Details: The patient is a 40-year-old female presenting for follow-up of a left Lisfranc injury. The patient reports that the pain is improving, and there is no significant pain on palpation or movement, except for mild discomfort in specific areas. Conservative treatment has been ongoing, with the patient wearing a camboot to manage the condition. She has been nonweightbearing to the left lower extremity. Patient states her pain has improved and she has not needed to take any meloxicam. She denies any new pedal injuries. She denies any new pedal concerns. [facility] Medical History (Updated 06/13/25 @ 11:18 by Claudette Gibbs DPM) Injury of left foot Left foot pain Lisfranc's sprain Lisfranc dislocation No known health problems Social History Alcohol intake: current Alcohol intake frequency: holidays/special occasions only Review of Systems Const Details: - Musculoskeletal: Reports reduced pain in the left foot in the tarsometatarsal joint area. All systems reviewed & are unremarkable except as noted in HPI and below Physical Exam Vital Signs: BMI result Body Mass Index 29.3 Extrem Other: Left lower extremity focused physical exam: Derm: No ecchymosis noted to the dorsum of the left forefoot. Slightly reduced edema noted to the left foot. No open lesions abrasions or wounds noted. No maceration noted. No clinical signs of infection noted. Vascular: DP/PT pulses palpable. Capillary refill time less than 3 seconds. Temperature gradient is warm to warm. Pedal hair absent. No varicosities not ed. Neuro: Protective sensation is grossly intact. MSK: Mild Pain on palpation to the dorsum of the left foot in the area of the tarsometatarsal joint. Reduced range of motion of the forefoot due to guarding from pain especially upon plantarflexion of the toes. No crepitus noted. Mildly Antalgic gait with the use of the cam boot. Range of motion of the ankle within normal limits without pain. MMT 4/5 due to guarding from pain. No fluctuance noted. Slight widening of the left foot noted in comparison to the right foot. Office Procedures AMB Podiatry Dressing Details of Procedure: Applied a stockinette and Kota bandage to the left lower extremity with the use of a cam boot. Patient unable to tolerate cast padding at this time. 45061 - Short leg splint Procedure code (CPT) selection complete Results Reviewed Results Reviewed: Ordered 3 views weightbearing xrays left foot to be performed prior to next visit. Podiatry read of left foot x-rays (07/17/2025): Slight increase in lateral displacement of the lesser metatarsal bones with continued positive kourtney sign. Left foot x-rays (07/17/2025): FINDINGS: Faint bony density projects in the space between the base of the first metatarsal and the adjacent second metatarsal overlapping the first tarsometatarsal joint on the AP view. There is mild widening of first intermetatarsal space. There is subtle lateral offset of the base of the second metatarsal relative to the intermediate cuneiform. No other abnormality is evident. IMPRESSION: Suspected Lisfranc ligament injury possibly with avulsion fracture involving the lateral base of the first metatarsal.. Podiatry read of Left foot CT scan (06/29/25): Lisfranc injury noted with fr acture of the base of the 2nd metatarsal injury to the Lisfranc ligament. Positive kourtney sign noted. Mild HAV noted. Left foot CT scan (06/29/25): FINDINGS: Lisfranc ligament: The main Lisfranc ligament appears grossly intact, but is not optimally demonstrated by CT. Soft tissues/Lo's Neuroma: No gross evidence of Lo's. There is no muscle edema or fatty atrophy. There is reticulation of the subcutaneous soft tissues in the plantar foot. Achilles tendon is intact and not thickened. Peroneal, medial, and anterior ankle tendons are intact. Syndesmotic ligaments appear intact. Talofibular and calcaneofibular ligaments appear intact. Deltoid ligament complex is grossly intact. Metatarsophalangeal (MTP) joint and sesamoids of the great toe: Joint capsule structures and plantar plate complex are grossly intact. There are no degenerative changes. Lesser MTP joints & Plantar plates: Joint capsule structures and plantar plate complexes are grossly intact. There are no degenerative changes. Bones: There is a fracture through the plantar base of the second metatarsal with incomplete cortical margins. No periosteal new bone formation is identified. The main Lisfranc ligament listhesis appears to span both dorsal and plantar to the fracture. Talar dome appears intact. IMPRESSION: There is an age-indeterminate fracture involving the plantar base of the second metatarsal extending into the proximal articular surface. The fracture line is at the enthesis of the main Lisfranc ligament. The margins along the fracture are somewhat sclerotic and there is no periosteal new bone formation raising question of a chronic fracture with nonunion, but acute fracture is not entirely excluded. Podiatry Read of Left foot xrays (06/04/25): Lisfranc injury noted with positive kourtney sign. Increased spacing approximately 4 mm between 1st cuneiform and base of 2nd metatarsal. Minimal homolateral dislocation of metatarsals 2 through 5. Mild HAV noted. Soft tissue swelling noted. Podiatry Read of Left ankle xrays (06/04/25): No acute fractures or dislocations noted. Joint space within normal limits. Kager's triangle intact. Left foot xrays (06/04/25): FINDINGS: Soft tissue swelling overlying the forefoot. No ankle joint effusion. Small opposite of the base of the 2nd metatarsal and 2nd cuneiform. Small ossification present along the medial margin of the 2nd metatarsal base. There is widening of the base of the 1st and 2nd metatarsals. Remaining metatarsals appear intact. Tarsal bones and phalanges appear intact. IMPRESSION: 1. Probable Lisfranc ligament injury. 2. Diffuse soft tissue swelling overlying the dorsal aspect of the left foot. Left ankle xrays (06/04/25): FINDINGS: No ankle joint effusion. Soft tissue swelling overlying the left ankle. Ankle mortise appears symmetric on non-stressed views. Talar dome appears intact. Distal tibia and fibula appear intact. Visualized tarsal bones appear intact. IMPRESSION: 1. Soft tissue swelling overlying the left ankle. Assessment & Plan Assessment & Plan (1) Lisfranc's sprain: Code(s): S93.629A - Sprain of tarsometatarsal ligament of unspecified foot, initial encounter Category: Medical Qualifiers: Encounter type: initial encounter Laterality: left Qualified Code(s): S93.622A - Sprain of tarsometatarsal ligament of left foot, initial encounter (2) Lisfranc dislocation: Code(s): S93.326A - Dislocation of tarsometatarsal joint of unspecified foot, initial encounter Category: Medical Qualifiers: Encounter type: initial encounter Laterality: left Qualified Code(s): S93.325A - Dislocation of tarsometatarsal joint of left foot, initial encounter (3) Left foot pain: Code(s): M79.672 - Pain in left foot Category: Medical (4) Injury of left foot: Code(s): S99.922A - Unspecified injury of left foot, initial encounter Category: Medical Qualifiers: Encounter type: initial encounter Qualified Code(s): S99.922A - Unspecified injury of left foot, initial encounter Plan Patient was informed and verbally consented to the use of an ambient scribe for clinic note documentation during this visit. I discussed with the patient that the x-rays show no new fractures but confirm slightly increased widening/lateral displacement of the tarsometatarsal joint in the area of the lesser metatarsals, consistent with widening of the foot. We talked about the importance of continuing to wear the boot as we transition into weight-bearing, but explained to patient that the only way to correct the increased lateral displacement is via surgical intervention. Patient opts for conservative treatment at this time. Recommend physical therapy at this time to increase mobility and function. We planned a follow-up in three weeks to reassess the condition. - Continue wearing the boot inpatient may start weight-bearing to the left foot using guide as the pain. Patient may use an assistive device while ambulating. - Initiate physical therapy to strengthen the left foot and increased mobility. - Applied a stockinette and Kota bandage to the left lower extremity with the use of a cam boot. - Patient may remove CAMboot upon rest but is to keep dressing on at all times while keeping dressing clean dry and intact. - Due to increased instability of Lisfranc ligament, surgical intervention is recommended to prevent further dislocation and potential complications such as arthritis and arch collapse. - Patient opts for conservative treatment at this time. - Consider surgical intervention to repair the Lisfranc ligament if conservative management fails. - Ordered left foot three-view weight-bearing x-rays to be performed prior to next visit to assess healing progress. - Continue taking Meloxicam prn for pain. - Provided PT referral. Patient is to follow up in 3 weeks Orders: Orders PT Evaluation and Treatment 07/20/25 M79.672 - Pain in left foot, S93.325A - Dislocation of tarsometatarsal joint of left foot, initial encounter, S93.622A - Sprain of tarsometatarsal ligament of left foot, initial encounter, S99.922A - Unspecified injury of left foot, initial encounter AMB Podiatry Dressing 07/20/25 M79.672 - Pain in left foot, S93.325A - Dislocation of tarsometatarsal joint of left foot, initial encounter, S93.622A - Sprain of tarsometatarsal ligament of left foot, initial encounter, S99.922A - Unspecified injury of left foot, initial encounter XR foot LT min 3V 07/20/25 M79.672 - Pain in left foot, S93.325A - Dislocation of tarsometatarsal joint of left foot, initial encounter, S93.622A - Sprain of tarsometatarsal ligament of left foot, initial encounter, S99.922A - Unspecified injury of left foot, initial encounter Coding Level of Care Code Est Pt Level 4 (93430) Diagnoses Sprain of tarsometatarsal ligament of left foot, initial encounter S93.622A Encounter type: initial encounter Laterality: left Dislocation of tarsometatarsal joint of left foot, initial encounter S93.325A Encounter type: initial encounter Laterality: left Left foot pain M79.672 Injury of left foot, initial encounter S99.922A Encounter type: initial encounter CPT Codes Podiatry Dressing - CPT: 11664 - Short leg splint ([id number]) Time Spent (min) 36
--- OUTSIDE RECORDS SUMMARY | 2025-07-20 10:49 | XMS_ITS | Clinical Summary ---
Author Organization [facility] Address [address] [address] [place] [address] Care Team Providers Care Customer Insight Analyst Name Role Phone Unavailable Primary Care Provider [...] 10:30 AM EST Office Visit [facility] [address] [place] [phone] Kaylee Story, DMD [address] [place] [address] Health Maintenance Due Date Last Done Comments [...] Drug Screen 09/07/2024 Depression Annual Screen 09/07/2024 [id number] ( season) 2025 Imm-Influenza (#1) 2025 Cervical Ablation/Cold-Knife Conization Discontinued Cervical Cryotherapy Discontinued Colposcopy Discontinued Excision/Leep Discontinued HPV Genotyping Discontinued Vaginal Pap Discontinued Vulvoscopy Discontinued
--- OUTSIDE RECORDS SUMMARY | 2025-07-20 10:49 | XMS_ITS | Clinical Summary ---
Author Organization [address] Address [address] [place] [phone] Phone Care Team Providers Care Needle Straightener Name Role Phone Shira Du MD Primary [...] Medicine [facility] [address] [place] [address] Shira Du MD [address] [facility] [place] [address] 12/07/2025 8:00 AM EDT Office Visit Adult Medicine [facility] [address] [place] [phone] Shira Du MD [address] [place] [address] Health Maintenance Due Date Last Done Comments HPV Vaccines (1 - 3-dose SCDM series) 2010 COVID-19 Vaccine (1 - 2024- season) 2025 Influenza Vaccine (#1) 2025 Hepatitis [...] LAB CHEMISTRY METHOD 03/30/2025 1:07 PM EDT [facility] Triglycerides 111 0 - 150 mg/dL LAB CHEMISTRY METHOD 03/30/2025 1:07 PM EDT [facility] HDL 52 >=40 mg/dL LAB CHEMISTRY METHOD 03/30/2025 1:07 PM EDT [facility] LDL Calculated 128(H) 0 - 100 mg/dL LAB CHEMISTRY METHOD 03/30/2025 1:07 PM EDT [facility] VLDL Cholesterol Fidencio 22.2 mg/dL LAB CHEMISTRY METHOD 03/30/2025 1:07 PM EDT [facility] Non HDL Chol. (LDL+VLDL) 150(H) <145 mg/dL LAB CHEMISTRY METHOD 03/30/2025 1:07 PM EDT [facility] Chol/HDL Ratio 3.9 0.0 - 4.4 LAB CHEMISTRY METHOD 03/30/2025 1:07 PM EDT [facility] Blood Venous blood specimen / Unknown Venipuncture / Unknown 03/30/2025 9:16 AM EDT 03/30/2025 9:16 AM EDT Shira Du MD LAB BLOOD ORDERABLES Final Result Performing Organization Address [facility]/ZIP Co de Phone Number [facility] [address] [place] [address], * HIV 1,2 antibody, p24 antigen with reflex to differentiation (12/01/2024 9:15 AM EDT) [facility] Signature HIV Combo AB/AG Negative Negative LAB CHEMISTRY METHOD 12/01/2024 4:22 PM EDT [facility] Blood Venous blood specimen / Unknown Venipuncture / Unknown 12/01/2024 9:15 AM EDT 12/01/2024 9:15 AM EDT Narrative [facility] - 12/01/2024 4:22 PM [...] BLOOD ORDERABLES Final Result Performing Organization Address City/[facility]/ZIP Co de Phone Number [facility] [address] [place] [address], [place] [phone] * Hepatitis panel, acute with reflex to confirmation (12/01/2024 9:15 AM EDT) Hepatitis B Surface Ag Negative Negative LAB CHEMISTRY METHOD 12/01/2024 4:23 PM EDT [facility] Hepatitis A Antibody IgM Negative Negative LAB CHEMISTRY METHOD 12/01/2024 4:23 PM EDT [facility] Hep B Core IgM Negative Negative LAB CHEMISTRY METHOD 12/01/2024 4:23 PM EDT [facility] Hepatitis C Antibody Negative Negative LAB CHEMISTRY METHOD 12/01/2024 4:23 PM EDT [facility] Blood Venous blood specimen / Unknown Venipuncture / Unknown 12/01/2024 9:15 AM EDT 12/01/2024 9:15 AM EDT us Shira Du MD LAB BLOOD ORDERABLES Final Result [facility] [address] [place] [address], [place] [phone] * DIAGNOSTIC MAMMOGRAPHY WITH CAD UNILATERAL (12/07/2023 [...] Final Result * Depression Screening (07/07/2023) Pathologist [facility] Depression Screening Abstracted Historical Provider HEALTH MAINTENANCE Final Result * Cervical Cancer Screening: HPV (08/26/2021) Pathologist [facility] Cervical Cancer Screening: HPV Abstracted ,Negative [facility] Provider HEALTH MAINTENANCE Final Result from Last 3 Months or Most Recently Relevant to Health Maintenance Additional Health Concerns Infection Onset Date Last Indicated Herpes simplex 12/01/2024 12/01/2024 Insurance [facility] [employer] Care Teams Needle Straightener Relationship Specialty Start Date End Date Shira Du MD [address] [place] [address] PCP - General 10/14/22
== END 2025-07-20 10:30 | disposition home or self-care (01) ==
LOC: HO.HPODS 09:27
PROVIDERS: PCP Internal Medicine; Visit Provider Student in an Organized Health Care Education/Training Program
DX: S93.622A Sprain of tarsometatarsal ligament of left foot, initial encounter (principal); S93.325A Dislocation of tarsometatarsal joint of left foot, initial encounter; M79.672 Pain in left foot; S99.922A Unspecified injury of left foot, initial encounter
CPT/HCPCS: 29515; 99214

== ENCOUNTER → 2025-07-20 09:27 | Outpatient (BNVA) | payer OTHER, SELFPAY | PROVIDERS: PCP Internal Medicine; Visit Provider Student in an Organized Health Care Education/Training Program | DX: S93.622A Sprain of tarsometatarsal ligament of left foot, initial encounter (principal); S93.325A Dislocation of tarsometatarsal joint of left foot, initial encounter; S99.922A Unspecified injury of left foot, initial encounter; X58.XXXA Exposure to other specified factors, initial encounter; Y93.9 Activity, unspecified; Y92.9 Unspecified place or not applicable; Y99.9 Unspecified external cause status | CPT/HCPCS: 29515; 99212 ==

== ENCOUNTER 2025-08-10 12:03 | Outpatient (REF) | payer OTHER, SELFPAY ==
--- NOTE | ~2025-08-10 | XR_ITS ---
EXAMINATION: XR FOOT 3 OR MORE VIEWS LEFT HISTORY: S93.622A - Sprain of tarsometatarsal ligament of left foot, initial... COMPARISON: Comparison is made with the prior examination dated 07/17/2025. FINDINGS: Three weightbearing views of the left foot are submitted. Osseous mineralization is normal. Again seen is widening of the interspace between the 1st and 2nd metatarsal bases, suggestive of a Lisfranc injury. The previously seen osseous density in this region is no longer identified. There is no significant joint space narrowing. The soft tissues are unremarkable. XR/XR foot LT min 3V IMPRESSION: Widening of the interspace between the 1st and 2nd metatarsal bases suggestive of a Lisfranc injury, as seen previously. The previously seen osseous density in this region is no longer identified. Electronically signed by: Carlos Bacon MD 08/10/2025 12:26 PM MARGOT
== END 2025-08-10 12:04 | disposition home or self-care (01) ==
LOC: HO.XRAY 12:03
PROVIDERS: PCP Internal Medicine; Visit Provider Student in an Organized Health Care Education/Training Program
DX: S93.325A Dislocation of tarsometatarsal joint of left foot, initial encounter (principal); S93.622A Sprain of tarsometatarsal ligament of left foot, initial encounter
CPT/HCPCS: 73630

== ENCOUNTER → 2025-08-10 12:08 | Outpatient (BNV) | payer OTHER, SELFPAY | PROVIDERS: PCP Internal Medicine; Visit Provider Radiology Diagnostic Radiology | DX: S93.622A Sprain of tarsometatarsal ligament of left foot, initial encounter (principal) | CPT/HCPCS: 73630 ==

== ENCOUNTER 2025-08-16 10:14 | Outpatient (AMB) | payer OTHER, SELFPAY ==
--- NOTE | 2025-08-16 10:47 | A.OFFVIS_ITS ---
Vital Signs 08/16/25 13:01 Height 5 ft 1 in Weight 155 lb BMI 29.3 Intake Visit Reasons: f/u xrays and PT; left lisfranc injury Intake Note: Lary is a 40 year old female who presents to the office today for a follow up on X-rays and PT for her left lisfranc injury. At last visit pt was instructed to continue wearing the boot inpatient and may start weight-bearing t o the left foot, continue Meloxicam and X-rays were ordered. Pt is starting physical therapy on 08/18 and X-rays were completed. Pt states the meloxicam medication has not been helping with her pain and she had since stopped taking the medication. She is currently still experiencing pain on the dorsum aspect of her left foot. Allergies JUVEDERM Allergy (Intermediate, Uncoded 06/04/25 15:18) LIP SWELLING HPI Comments Details: The patient is a 40-year-old female presenting for a follow-up on her left foot Lisfranc injury. She reports persistent pain rated 5/10, described as sharp and stabbing, which occurs immediately upon walking. She reports that meloxicam was not effective for her pain, but she is finding relief with ibuprofen 600 mg. The patient has started physical therapy and reports soreness the day after sessions but feels it is going well. She denies any new pedal injuries. She denies any other pedal concerns. [facility] Medical History (Updated 06/13/25 @ 11:18 by Claudette Gibbs DPM) Injury of left foot Left foot pain Lisfranc's sprain Lisfranc dislocation No known health problems Social History Alcohol intake: current Alcohol intake frequency: holidays/special occasions only Review of Systems Const Details: - Musculoskeletal: Reports sharp, stabbing pain in the left foot in the tarsometatarsal area upon walking, with a severity of 5/10. - Reports weakness and a feeling of instability in the left foot. - Reports post-activity soreness following physical therapy. All systems reviewed & are unremarkable except as noted in HPI and below Physical Exam Vital Signs: BMI result Body Mass Index 29.3 Extrem Other: Left lower extremity focused physical exam: Derm: No ecchymosis noted to the dorsum of the left forefoot. Slightly reduced edema noted to the left foot. No open lesions abrasions or wounds noted. No maceration noted. No clinical signs of infection noted. Vascular: DP/PT pulses palpable. Capillary refill time less than 3 seconds. Temperature gradient is warm to warm. Pedal hair absent. No varicosities noted. Neuro: Protective sensation is grossly intact. MSK: Mild Pain on palpation to the dorsum of the left foot in the area of the tarsometatarsal joint. Slightly reduced range of motion of the forefoot due to guarding from pain especially upon plantarflexion of the toes. No crepitus noted. Mildly Antalgic gait. Range of motion of the ankle within normal limits without pain. MMT 4/5 due to guarding from pain, but improved from last visit. No fluctuance noted. Slight widening of the left foot noted in comparison to the right foot. Results Reviewed Results Reviewed: Podiatry read of left foot x-rays (08/10/2025): No increase in lateral displacement of the lesser metatarsal bones in comparison to previous x-ray. Danie sign no longer noted. No new acute fractures or dislocations noted. Left foot x-ray (08/10/2025): FINDINGS: Three weightbearing views of the left foot are submitted. Osseous mineralization is normal. Again seen is widening of the interspace between the 1st and 2nd metatarsal bases, suggestive of a Lisfranc injury. The previously seen osseous density in this region is no longer identified. There is no significant joint space narrowing. The soft tissues are unremarkable. IMPRESSION: Widening of the interspace between the 1st and 2nd metatarsal bases suggestive of a Lisfranc injury, as seen previously. The previously seen osseous density in this region is no longer identified. Podiatry read of left foot x-rays (07/17/2025): Slight increase in lateral displacement of the lesser metatarsal bones with continued positive danie sign. Left foot x-rays (07/17/2025): FINDINGS: Faint bony density projects in the space between the base of the first metatarsal and the adjacent second metatarsal overlapping the first tarsometatarsal joint on the AP view. There is mild widening of first intermetatarsal space. There is subtle lateral offset of the base of the second metatarsal relative to the intermediate cuneiform. No other abnormality is evident. IMPRESSION: Suspected Lisfranc ligament injury possibly with avulsion fracture involving the lateral base of the first metatarsal.. Podiatry read of Left foot CT scan (06/29/25): Lisfranc injury noted with fracture of the base of the 2nd metatarsal injury to the Lisfranc ligament. Positive danie sign noted. Mild HAV noted. Left foot CT scan (06/29/25): FINDINGS: Lisfranc ligament: The main Lisfranc ligament appears grossly intact, but is not optimally demonstrated by CT. Soft tissues/Lo's Neuroma: No gross evidence of Lo's. There is no muscle edema or fatty atrophy. There is reticulation of the subcutaneous soft tissues in the plantar foot. Achilles tendon is intact and not thickened. Peroneal, medial, and anterior ankle tendons are intact. Syndesmotic ligaments appear intact. Talofibular and calcaneofibular ligaments appear intact. Deltoid ligament complex is grossly intact. Metatarsophalangeal (MTP) joint and sesamoids of the great toe: Joint capsule structures and plantar plate complex are grossly intact. There are no degenerative changes. Lesser MTP joints & Plantar plates: Joint capsule structures and plantar plate complexes are grossly intact. There are no degenerative changes. Bones: There is a fracture through the plantar base of the second metatarsal with incomplete cortical margins. No periosteal new bone formation is identified. The main Lisfranc ligament listhesis appears to span both dorsal and plantar to the fracture. Talar dome appears intact. IMPRESSION: There is an age-indeterminate fracture involving the plantar base of the second metatarsal extending into the proximal articular surface. The fracture line is at the enthesis of the main Lisfranc ligament. The margins along the fracture are somewhat sclerotic and there is no periosteal new bone formation raising question of a chronic fracture with nonunion, but acute fracture is not entirely excluded. Podiatry Read of Left foot xrays (06/04/25): Lisfranc injury noted with positive danie sign. Increased spacing approximately 4 mm between 1st cuneiform and base of 2nd metatarsal. Minimal homolateral dislocation of metatarsals 2 through 5. Mild HAV noted. Soft tissue swelling noted. Podiatry Read of Left ankle xrays (06/04/25): No acute fractures or dislocations noted. Joint space within normal limits. Kager's triangle intact. Left foot xrays (06/04/25): FINDINGS: Soft tissue swelling overlying the forefoot. No ankle joint effusion. Small opposite of the base of the 2nd metatarsal and 2nd cuneiform. Small ossification present along the medial margin of the 2nd metatarsal base. There is widening of the base of the 1st and 2nd metatarsals. Remaining metatarsals appear intact. Tarsal bones and phalanges appear intact. IMPRESSION: 1. Probable Lisfranc ligament injury. 2. Diffuse soft tissue swelling overlying the dorsal aspect of the left foot. Left ankle xrays (06/04/25): FINDINGS: No ankle joint effusion. Soft tissue swelling overlying the left ankle. Ankle mortise appears symmetric on non-stressed views. Talar dome appears intact. Distal tibia and fibula appear intact. Visualized tarsal bones appear intact. IMPRESSION: 1. Soft tissue swelling overlying the left ankle. Assessment & Plan Assessment & Plan (1) Lisfranc's sprain: Code(s): S93.629A - Sprain of tarsometatarsal ligament of unspecified foot, initial encounter Category: Medical Qualifiers: Encounter type: initial encounter Laterality: left Qualified Code(s): S93.622A - Sprain of tarsometatarsal ligament of left foot, initial encounter (2) Lisfranc dislocation: Code(s): S93.326A - Dislocation of tarsometatarsal joint of unspecified foot, initial encounter Category: Medical Qualifiers: Encounter type: initial encounter Laterality: left Qualified Code(s): S93.325A - Dislocation of tarsometatarsal joint of left foot, initial encounter (3) Left foot pain: Code(s): M79.672 - Pain in left foot Category: Medical (4) Injury of left foot: Code(s): S99.922A - Unspecified injury of left foot, initial encounter Category: Medical Qualifiers: Encounter type: initial encounter Qualified Code(s): S99.922A - Unspecified injury of left foot, initial encounter Plan Patient was informed and verbally consented to the use of an ambient scribe for clinic note documentation during this visit. I discussed with the patient that her continued foot pain is expected given the nature of her Lisfranc injury. I explained that the recent X-ray results are reassuring as the gap in her foot has not widened, meaning we can continue with conservative management and avoid surgery for now. I counseled her that because the main ligament supporting her foot was torn and has not been surgically repaired, it is likely that her foot will always feel weaker than the right side and she may experience some degree of chronic pain. I informed her that ligament healing can take long to heal conservatively. I advised her that the gap may naturally widen over time with walking. I emphasized the importance of continuing with physical therapy to rebuild strength and functionality. We discussed continuarion of ibuprofen for pain control and using her CAM boot for protection during periods of increased activity. We will reassess her progress in two months, at which point we will determine if further imaging is needed based on her pain level and function. - The patient will continue with physical therapy to improve strength and stability in her left foot. - For pain management, she will continue taking ibuprofen 600 mg as needed. - Patient may be weight-bearing as tolerated to the left lower extremity in a supportive sneaker. - She should continue to use sneakers for stability and wear inserts. - She may use the CAM boot for periods of high activity or prolonged standing. RTC in 2 months. Coding Level of Care Code Est Pt Level 4 (92905) Diagnoses Sprain of tarsometatarsal ligament of left foot, initial encounter S93.622A Encounter type: initial encounter Laterality: left Dislocation of tarsometatarsal joint of left foot, initial encounter S93.325A Encounter type: initial encounter Laterality: left Left foot pain M79.672 Injury of left foot, initial encounter S99.922A Encounter type: initial encounter Time Spent (min) 34
[2025-08-16 13:01] VITALS: BMI 29.3
== END 2025-08-16 10:57 | disposition home or self-care (01) ==
LOC: HO.HPODS 10:14
PROVIDERS: PCP Internal Medicine; Visit Provider Student in an Organized Health Care Education/Training Program
DX: S93.622A Sprain of tarsometatarsal ligament of left foot, initial encounter (principal); S93.325A Dislocation of tarsometatarsal joint of left foot, initial encounter; M79.672 Pain in left foot; S99.922A Unspecified injury of left foot, initial encounter
CPT/HCPCS: 99214

== ENCOUNTER → 2025-08-16 10:14 | Outpatient (BNVA) | payer OTHER, SELFPAY | PROVIDERS: PCP Internal Medicine; Visit Provider Student in an Organized Health Care Education/Training Program | DX: S93.622A Sprain of tarsometatarsal ligament of left foot, initial encounter (principal); S93.325A Dislocation of tarsometatarsal joint of left foot, initial encounter; X58.XXXA Exposure to other specified factors, initial encounter; Y93.9 Activity, unspecified; Y92.9 Unspecified place or not applicable; Y99.9 Unspecified external cause status | CPT/HCPCS: 99212 ==